=== PATIENT | male | born 1990 | race Caucasian/White ===

== ENCOUNTER 2019-01-28 16:58 | Inpatient (IN) | payer OTHER ==
[~2019-01-28] VITALS: Ht 172.7 cm; Wt 75.9 kg
[2019-01-28] MEDS ORDERED: NS 1,000 ML IV ONE (18:00)
[2019-01-28 18:05] LABS: BASO % 0.3 % (0.0-1.0); EOS # 0.1 10^3/uL (0.0-0.50); EOS % 1.6 % (0.0-3.0); HEMOGLOBIN 13.8 g/dl (13.5-17.5); LYMPH # 1.4 10^3/uL (1.5-6.5); LYMPH % 21.9 % (24.0-44.0); MEAN CORPUSCULAR HEMOGLOBIN 30.6 pg (27.0-33.0); MEAN CORPUSCULAR HGB CONC 33.7 g/dl (32.0-36.5); MEAN CORPUSCULAR VOLUME 90.9 fl (80.0-96.0); MONO # 0.3 10^3/uL (0.0-0.8); MONO % 4.2 % (0.0-5.0); NEUTROPHILS # 4.5 10^3/uL (1.8-7.7); NEUTROPHILS % 71.7 % (36.0-66.0); PLATELET COUNT, AUTOMATED 180 10^3/uL (150-450); RED BLOOD COUNT 4.51 10^6/uL (4.30-6.10); WHITE BLOOD COUNT 6.2 10^3/uL (4.0-10.0)
[2019-01-28 18:33] LABS: CALCIUM LEVEL 9.2 MG/DL (8.5-10.1); CREATININE FOR GFR 2.66 MG/DL (0.70-1.30); GLOMERULAR FILTRATION RATE 30.6 (>60); POTASSIUM SERUM 4.4 MEQ/L (3.5-5.1)
[2019-01-28 18:46] LABS: AMPHETAMINES LEVEL URINE NEGATIVE (NEGATIVE); BARBITURATES URINE NEGATIVE (NEGATIVE); BENZODIAZEPINES URINE NEGATIVE (NEGATIVE); CANNABINOIDS URINE NEGATIVE (NEGATIVE); COCAINE METABOLITE URINE NEGATIVE (NEGATIVE); METHADONE URINE NEGATIVE (NEGATIVE); OPIATES URINE NEGATIVE (NEGATIVE); PHENCYCLIDINE URINE NEGATIVE (NEGATIVE)
--- NOTE | 2019-01-28 18:57 | REPVR ---
EXAM: CT Abdomen and Pelvis Without Contrast EXAM DATE/TIME: 01/28/2019 5:55 PM CLINICAL HISTORY: 28 years old, male; Abdominal pain; Flank; Right; Additional info: Right flank pain TECHNIQUE: Imaging protocol: Axial computed tomography images of the abdomen and pelvis without contrast. Coronal and sagittal reformatted images were created and reviewed. Radiation optimization: All CT scans at this facility use at least one of these dose optimization techniques: automated exposure control; mA and/or kV adjustment per patient size (includes targeted exams where dose is matched to clinical indication); or iterative reconstruction. COMPARISON: No relevant prior studies available. FINDINGS: Limitations: Lack of intravenous contrast material limits evaluation of the vascular and visceral structures. Liver: Normal. No mass. Gallbladder and bile ducts: Normal. No calcified stones. No ductal dilation. Pancreas: Normal. No ductal dilation. Spleen: Normal. No splenomegaly. Adrenals: Normal. No mass. Kidneys and ureters: Right renal cortical scarring. Absence of the left kidney. Mild to moderate distention of the distal right ureter. No obstructing calculus is identified. No hydronephrosis. Stomach and bowel: Normal. No obstruction. No mucosal thickening. Appendix: No evidence of appendicitis. Intraperitoneal space: Normal. No free air. No significant fluid collection. Vasculature: Normal. No abdominal aortic aneurysm. Lymph nodes: Normal. No enlarged lymph nodes. Bladder: Unremarkable as visualized. Reproductive: Unremarkable as visualized. Bones/joints: No acute fracture. No dislocation. Soft tissues: Unremarkable. IMPRESSION: 1. Nonspecific mild to moderate distention of the distal right ureter. No obstructing calculus is identified. No hydronephrosis. 2. Absent left kidney. 3. Right renal cortical scarring. Electronically signed by: Pura Garcia On 01/28/2019 18:57:29 PM
[2019-01-28] MEDS ORDERED: ACETAMINOPHEN 500 MG TAB PO PRN (20:30)
[2019-01-28] MEDS: D5W/0.9% SODIUM CHLORIDE 1,000 ML IV SCH (20:51)
--- NOTE | 2019-01-28 21:42 | HPEPDOC ---
General Date of Admission Jan 28, 2019 at 20:22 Date of Service: Jan 28, 2019 Chief Complaint The patient is a 28-year-old male admitted with a reason for visit of Ckd, Stage Iv. Source: Patient, Old records History of Present Illness 28 year old male recently moved up from [place] about 3 months ago to stay with uncle at [place] with PMH of CKD stage 4, Obstructive uropathy had nephrostomy tube on the right from April 2018 to August 2018 was put in [place] and it fell off during showering, left nephrectomy at age 3, unemployed, no PMD, uncle has no transportation as his car broke down no food in the house so has not been eating much or past 3 days so feeling very weak and dizzy today and called the EMS and he was brought to our ED for evaluation. Patient was seen at [facility] ED about a week ago for right flank pain and was diagnosed with a UTI and was prescribed antibiotics which he could not strip picker as he had no transportation. Today he continues to complain of right flank pain about 4/10 in intensity, dull aching in type with no radiation. Labs in the ED showed a creatinine of 2.6, His UA was clean. His creatinine patient reports was 2.7 and 3.7 in November and December and he was referred to renal here but has not been able to see them as he has no transportation. He was admitted for social issues Allergies Coded Allergies: No Known Drug Allergies (Verified Allergy, Unknown, 01/28/19) NSAIDS (Non-Steroidal Anti-Inflamma (Verified Adverse Reaction, Unknown, 01/28/19) Kidney failure Past Medical History Medical History CKD stage 4, Obstructive uropathy had nephrostomy tube on the right from April 2018 to August 2018 was put in [place] and it fell off during sh owering, left nephrectomy at age 3, Family History Significant Family History: Heart disease (fatehr, uncle), Hypertension (father, uncle), Renal disease (mother) Social History * Smoker: current smoker Alcohol: Denies Drugs: denies A-FIB/CHADSVASC A-FIB History Current/History of A-Fib/PAF?: No Review of Systems Constitutional: Reports: Weakness, Fatigue; Denies: Chills, Fever, Night Sweats Eyes: Denies: Pain, Vision change ENT: Denies: Head Aches, Ear Pain, Dysphagia Skin: Denies: Rash, Lesions, Breakdown Pulmonary: Denies: Dyspnea, Cough Cardiovascular: Denies: Chest Pain, Palpitations, Orthopnea, Paroxysmal Noc. Dyspnea, Lt Headedness Gastrointestinal: Reports: Abdominal Pain; Denies: Nausea, Vomiting, Diarrhea Genitourinary: Reports: Other Symptoms (dark colored urine); Denies: Dysuria, Frequency, Incontinence, Retention Hematologic: Denies: Bruising, Bleeding Excessively Musculoskeletal: Denies: Neck Pain, Back Pain, Joint Pain, Muscle Pain, Spasms Physical Examination General Exam: Positive: Alert, Cooperative, No Acute Distress Eye Exam: Positive: PERRLA, Conjunctiva & lids normal, EOMI; Negative: Sclera icteric ENT Exam: Positive: Atraumatic, Mucous membr. moist/pink, Pharynx Normal Neck Exam: Positive: Supple; Negative: JVD, thyromegaly Chest Exam: Positive: Clear to auscultation, Normal air movement Heart Exam: Positive: Rate Normal, Regular Rhythm, Normal S1, Normal S2; Negative: Murmurs, Rubs Abdomen Exam: Positive: Normal bowel sounds, Soft, Tenderness (right flank on deep palpation), Other (No CVA tenderness); Negative: Hepatospenomegaly Extremity Exam: Positive: Normal pulses; Negative: Clubbing, Cyanosis, Edema Skin Exam: Positive: Nl turgor and temperature; Negative: Breakdown, Lesion Psych Exam: Positive: Memory Intact, Oriented x 3 Vital Signs Vital Signs Date Time Temp Pulse Resp B/P (MAP) Pulse Ox O2 Delivery O2 Flow Rate FiO2 01/28/19 17:03 98.1 76 16 130/63 100 Room Air Laboratory Data Labs 24H Laboratory Tests 2 01/28/19 17:39: Immature Granulocyte % (Auto) 0.3, White Blood Count 6.2, Red Blood Count 4.51, Hemoglobin 13.8, Hematocrit 41.0L, Mean Corpuscular Volume 90.9, Mean Corpuscular Hemoglobin 30.6, Mean Corpuscular Hemoglobin Concent 33.7, Red Cell Distribution Width 13.0, Platelet Count 180, Neutrophils (%) (Auto) 71.7H, Lymphocytes (%) (Auto) 21.9L, Monocytes (%) (Auto) 4.2, Eosinophils (%) (Auto) 1.6, Basophils (%) (Auto) 0.3, Neutrophils # (Auto) 4.5, Lymphocytes # (Auto) 1.4L, Monocytes # (Auto) 0.3, Eosinophils # (Auto) 0.1, Basophils # (Auto) 0.0, Nucleated Red Blood Cells % (auto) 0.0, Anion Gap 16, Glomerular Filtration Rate 30.6L, Blood Urea Nitrogen 35H, Creatinine 2.66H, Sodium Level 141, Potassium Level 4.4, Chloride Level 106, Carbon Dioxide Level 19L, Calcium Level 9.2 01/28/19 17:43: Urine Color YELLOW, Urine Appearance CLEAR, Urine pH 5.0, Urine Specific [place] 1.011, Urine Protein 2+H, Urine Glucose (UA) NEGATIVE, Urine Ketones 1+H, Urine Blood 1+H, Urine Nitrite NEGATIVE, Urine Bilirubin NEGATIVE, Urine Urobilinogen 0.2, Urine Leukocyte Esterase NEGATIVE, Urine WBC (Auto) 1, Urine RBC (Auto) 2, Urine Hyaline Casts (Auto) 0, Urine Bacteria (Auto) NEGATIVE, Urine Squamous Epithelial Cells 0, Urine Sperm (Auto) 01/28/19 17:44: Urine Amphetamines Screen NEGATIVE, Urine Benzodiazepines Screen NEGATIVE, Urine Opiates Screen NEGATIVE, Urine Methadone Screen NEGATIVE, Urine Barbiturates Screen NEGATIVE, Urine Phencyclidine Screen NEGATIVE, Urine Cocaine Metabolite Screen NEGATIVE, Urine Cannabinoids Screen NEGATIVE 01/28/19 19:46: Ethyl Alcohol Level < 0.003 CBC/BMP Laboratory Tests 01/28/19 17:39 Red Blood Count 4.51, Mean Corpuscular Volume 90.9, Mean Corpuscular Hemoglobin 30.6, Mean Corpuscular Hemoglobin Concent 33.7, Red Cell Distribution Width 13.0, Neutrophils (%) (Auto) 71.7 H, Lymphocytes (%) (Auto) 21.9 L, Monocytes (%) (Auto) 4.2, Eosinophils (%) (Auto) 1.6, Basophils (%) (Auto) 0.3, Neutrophils # (Auto) 4.5, Lymphocytes # (Auto) 1.4 L, Monocytes # (Auto) 0.3, Eosinophils # (Auto) 0.1, Basophils # (Auto) 0.0, Calcium Level 9.2 Assessment/Plan 28 year old male recently moved up from [place] about 3 months ago to stay with uncle at [place] with PMH of CKD stage 4, Obstructive uropathy had nephrostomy tube on the right from April 2018 to August 2018 was put in [place] and it fell off during showering, left nephrectomy at age 3, unemployed, no PMD, uncle has no transportation as his car broke down no food in the house so has not been eating much or past 3 days so feeling very weak and dizzy today and called the EMS and he was brought to our ED for evaluation. Patient was seen at [facility] ED about a week ago for right flank pain and was diagnosed with a UTI and was prescribed antibiotics which he could not strip picker as he had no transportation. Today he continues to complain of right flank pain about 4/10 in intensity, dull aching in type with no radiation. Labs in the ED showed a creatinine of 2.6, His UA was clean. His creatinine patient reports was 2.7 and 3.7 in November and December and he was referred to renal here but has not been able to see them as he has no transportation. He was admitted for social issues. CKD stage 3 to 4 solitary kidney creatinine probably at baseline however will give some IVF. CT abdomen showed right ureteric dilatation will consult urology Hypoglycemia will give regular food and dextrose. tylenol for pain Social issues consult PFS. Plan / VTE VTE Prophylaxis Ordered?: Yes MARCO JUNIOR MD Jan 28, 2019 21:41
[2019-01-28] MEDS ORDERED: ADVI100T PO (22:10)
[2019-01-28 22:42] VITALS: BP 112/74
[2019-01-29 06:00] VITALS: BP 107/67
[2019-01-29] MEDS: D5W/0.9% SODIUM CHLORIDE 1,000 ML IV SCH ×3 (06:39→20:09)
[2019-01-29 06:49] LABS: BASO % 0.4 % (0.0-1.0); EOS # 0.2 10^3/uL (0.0-0.50); EOS % 4.6 % (0.0-3.0); LYMPH % 39.1 % (24.0-44.0); MEAN CORPUSCULAR HGB CONC 34.3 g/dl (32.0-36.5); MEAN CORPUSCULAR VOLUME 87.5 fl (80.0-96.0); MONO # 0.5 10^3/uL (0.0-0.8); MONO % 9.6 % (0.0-5.0); NEUTROPHILS # 2.4 10^3/uL (1.8-7.7); NEUTROPHILS % 46.1 % (36.0-66.0); PLATELET COUNT, AUTOMATED 192 10^3/uL (150-450); WHITE BLOOD COUNT 5.2 10^3/uL (4.0-10.0)
[2019-01-29 07:05] LABS: CALCIUM LEVEL 7.9 MG/DL (8.5-10.1); CREATININE FOR GFR 2.42 MG/DL (0.70-1.30); GLOMERULAR FILTRATION RATE 34.2 (>60); POTASSIUM SERUM 3.9 MEQ/L (3.5-5.1)
--- NOTE | 2019-01-29 09:16 | IPNPDOC ---
Date Seen The patient was seen on 01/29/19. Progress Note SUBJECTIVE: Pt denies any fever, chills, nausea, vomiting, abdominal pain, sob. npo on ivfluids. "I'm hungry." Urologist consulted. Physical Examination VITALS: PLS SEE BELOW General Exam: Positive: Alert, Cooperative, No Acute Distress Eye Exam: Positive: PERRLA, Conjunctiva & lids normal, EOMI; Negative: Sclera icteric ENT Exam: Positive: Atraumatic, Mucous membr. moist/pink, Pharynx Normal Neck Exam: Positive: Supple; Negative: JVD, thyromegaly Chest Exam: Positive: Clear to auscultation, Normal air movement Heart Exam: Positive: Rate Normal, Regular Rhythm, Normal S1, Normal S2; Negative: Murmurs, Rubs Abdomen Exam: Positive: Normal bowel sounds, Soft, Tenderness (right flank on deep palpation), Other (No CVA tenderness); Negative: Hepatospenomegaly Extremity Exam: Positive: Normal pulses; Negative: Clubbing, Cyanosis, Edema Skin Exam: Positive: Nl turgor and temperature; LABORATORY DATA, IMAGING STUDIES, MICROBIOLOGY: PLS SEE BELOW Assessment/Plan 28 year old male recently moved up from [place] about 3 months ago to stay with uncle at [place] with PMH of CKD stage 4, Obstructive uropathy had nephrostomy tube on the right from April 2018 to August 2018 was put in [place] and it fell off during showering, left nephrectomy at age 3, unemployed, no PMD, uncle has no transportation as his car broke down no food in the house so has not been eating much or past 3 days so feeling very weak and dizzy today and called the EMS and he was brought to our ED for evaluation. 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 Today he continues to complain of right flank pain about 4/10 in intensity, dull aching in type with no radiation. Labs in the ED showed a creatinine of 2.6, His UA was clean. His creatinine patient reports was 2.7 and 3.7 in November and December and he was referred to renal here but has not been able to see them as he has no transportation. He was admitted for social issues. CKD stage 3 to 4 solitary kidney creatinine probably at baseline on iv fluids npo CT abdomen showed right ureteric dilatation consulted urology Hypoglycemia npo on ivfluids hypoglycemic protocol Obstructive uropathy -had nephrostomy tube on the right -from April 2018 to August 2018 -was put in [place] - it fell off during showering, left nephrectomy at age 3, solitary functioning kidney on ivfluids renally dosing medications avoiding nephrotoxins no NSAIDS unemployed, moved from [place] living his uncle in [place] pfs consulted for assistance Plan / VTE VTE Prophylaxis Ordered?: Yes VS, I&O, 24H, Fishbone Vital Signs/I&O Vital Signs Date Time Temp Pulse Resp B/P (MAP) Pulse Ox O2 Delivery O2 Flow Rate FiO2 01/29/19 06:00 98.2 55 18 107/67 (80) 95 01/28/19 22:35 Room Air I&O- Last 24 Hours up to 6 AM 01/29/19 06:00 Intake Total 3080 ml Output Total 600 ml Balance 2480 ml Laboratory Data 24H LABS Laboratory Tests 2 01/28/19 17:39: Immature Granulocyte % (Auto) 0.3, White Blood Count 6.2, Red Blood Count 4.51, Hemoglobin 13.8, Hematocrit 41.0L, Mean Corpuscular Volume 90.9, Mean Corpuscular Hemoglobin 30.6, Mean Corpuscular Hemoglobin Concent 33.7, Red Cell Distribution Width 13.0, Platelet Count 180, Neutrophils (%) (Auto) 71.7H, Lymphocytes (%) (Auto) 21.9L, Monocytes (%) (Auto) 4.2, Eosinophils (%) (Auto) 1.6, Basophils (%) (Auto) 0.3, Neutrophils # (Auto) 4.5, Lymphocytes # (Auto) 1.4L, Monocytes # (Auto) 0.3, Eosinophils # (Auto) 0.1, Basophils # (Auto) 0.0, Nucleated Red Blood Cells % (auto) 0.0, Anion Gap 16, Glomerular Filtration Rate 30.6L, Blood Urea Nitrogen 35H, Creatinine 2.66H, Sodium Level 141, Potassium Level 4.4, Chloride Level 106, Carbon Dioxide Level 19L, Calcium Level 9.2 01/28/19 17:43: Urine Color YELLOW, Urine Appearance CLEAR, Urine pH 5.0, Urine Specific [place] 1.011, Urine Protein 2+H, Urine Glucose (UA) NEGATIVE, Urine Ketones 1+H, Urine Blood 1+H, Urine Nitrite NEGATIVE, Urine Bilirubin NEGATIVE, Urine Urobilinogen 0.2, Urine Leukocyte Esterase NEGATIVE, Urine WBC (Auto) 1, Urine RBC (Auto) 2, Urine Hyaline Casts (Auto) 0, Urine Bacteria (Auto) NEGATIVE, Urine Squamous Epithelial Cells 0, Urine Sperm (Auto) 01/28/19 17:44: Urine Amphetamines Screen NEGATIVE, Urine Benzodiazepines Screen NEGATIVE, Urine Opiates Screen NEGATIVE, Urine Methadone Screen NEGATIVE, Urine Barbiturates Screen NEGATIVE, Urine Phencyclidine Screen NEGATIVE, Urine Cocaine Metabolite Screen NEGATIVE, Urine Cannabinoids Screen NEGATIVE 01/28/19 19:46: Ethyl Alcohol Level < 0.003 01/28/19 22:28: Bedside Glucose (Misc Panel) 260H 01/29/19 05:27: Immature Granulocyte % (Auto) 0.2, White Blood Count 5.2, Red Blood Count 4.00L, Hemoglobin 12.0L, Hematocrit 35.0L, Mean Corpuscular Volume 87.5, Mean Corpuscular Hemoglobin 30.0, Mean Corpuscular Hemoglobin Concent 34.3, Red Cell Distribution Width 12.9, Platelet Count 192, Neutrophils (%) (Auto) 46.1, Lymphocytes (%) (Auto) 39.1, Monocytes (%) (Auto) 9.6H, Eosinophils (%) (Auto) 4.6H, Basophils (%) (Auto) 0.4, Neutrophils # (Auto) 2.4, Lymphocytes # (Auto) 2.0, Monocytes # (Auto) 0.5, Eosinophils # (Auto) 0.2, Basophils # (Auto) 0.0, Nucleated Red Blood Cells % (auto) 0.0, Anion Gap 7L, Glomerular Filtration Rate 34.2L, Blood Urea Nitrogen 37H, Creatinine 2.42H, Sodium Level 142, Potassium Level 3.9, Chloride Level 113H, Carbon Dioxide Level 22, Calcium Level 7.9L CBC/BMP Laboratory Tests 01/28/19 17:39 Red Blood Count 4.51, Mean Corpuscular Volume 90.9, Mean Corpuscular Hemoglobin 30.6, Mean Corpuscular Hemoglobin Concent 33.7, Red Cell Distribution Width 13.0, Neutrophils (%) (Auto) 71.7 H, Lymphocytes (%) (Auto) 21.9 L, Monocytes (%) (Auto) 4.2, Eosinophils (%) (Auto) 1.6, Basophils (%) (Auto) 0.3, Neutrophils # (Auto) 4.5, Lymphocytes # (Auto) 1.4 L, Monocytes # (Auto) 0.3, Eosinophils # (Auto) 0.1, Basophils # (Auto) 0.0, Calcium Level 9.2 01/29/19 05:27 Red Blood Count 4.00 L, Mean Corpuscular Volume 87.5, Mean Corpuscular Hemoglobin 30.0, Mean Corpuscular Hemoglobin Concent 34.3, Red Cell Distribution Width 12.9, Neutrophils (%) (Auto) 46.1, Lymphocytes (%) (Auto) 39.1, Monocytes (%) (Auto) 9.6 H, Eosinophils (%) (Auto) 4.6 H, Basophils (%) (Auto) 0.4, Neutro phils # (Auto) 2.4, Lymphocytes # (Auto) 2.0, Monocytes # (Auto) 0.5, Eosinophils # (Auto) 0.2, Basophils # (Auto) 0.0, Calcium Level 7.9 L KALYAN VASQUEZ MD Jan 29, 2019 09:16
[2019-01-29 14:00] VITALS: BP 130/75
[2019-01-29 22:00] VITALS: BP 109/63
[2019-01-30] VITALS (7 sets, daily range): BP systolic 116–156; BP diastolic 69–108
[2019-01-30 06:02] LABS: BASO % 0.6 % (0.0-1.0); EOS # 0.2 10^3/uL (0.0-0.50); EOS % 4.3 % (0.0-3.0); HEMOGLOBIN 11.1 g/dl (13.5-17.5); LYMPH # 1.9 10^3/uL (1.5-6.5); LYMPH % 36.4 % (24.0-44.0); MEAN CORPUSCULAR HEMOGLOBIN 29.9 pg (27.0-33.0); MEAN CORPUSCULAR HGB CONC 33.6 g/dl (32.0-36.5); MEAN CORPUSCULAR VOLUME 88.9 fl (80.0-96.0); MONO # 0.5 10^3/uL (0.0-0.8); MONO % 8.8 % (0.0-5.0); NEUTROPHILS # 2.7 10^3/uL (1.8-7.7); NEUTROPHILS % 49.7 % (36.0-66.0); PLATELET COUNT, AUTOMATED 163 10^3/uL (150-450); RED BLOOD COUNT 3.71 10^6/uL (4.30-6.10); WHITE BLOOD COUNT 5.3 10^3/uL (4.0-10.0)
[2019-01-30 06:19] LABS: CALCIUM LEVEL 8.2 MG/DL (8.5-10.1); CREATININE FOR GFR 2.3 MG/DL (0.70-1.30); GLOMERULAR FILTRATION RATE 36.2 (>60); POTASSIUM SERUM 3.9 MEQ/L (3.5-5.1)
[2019-01-30] MEDS: D5W/0.9% SODIUM CHLORIDE 1,000 ML IV SCH (06:34)
[2019-01-30] MEDS ORDERED: PROPOFOL 200 MG/20 ML VIAL As Ordered ONE (07:38)
[2019-01-30] MEDS ORDERED: fentaNYL 100 MCG/2 ML INJECTION (J3010) As Ordered ONE ×2 (07:38→10:20)
[2019-01-30] MEDS ORDERED: MIDAZOLAM INJ 2 MG/2 ML VIAL (J2250) As Ordered ONE (07:38)
[2019-01-30] MEDS ORDERED: LIDOCAINE 2% INJ 100 MG/5 ML SDV (FOR ANES.) As Ordered ONE (07:38)
[2019-01-30] MEDS ORDERED: CONRAY-60 60% 50ML VIAL (Q9961) As Ordered ONE (08:23)
[2019-01-30] MEDS ORDERED: cefTRIAXone SOD 1 GM VIAL (J0696) As Ordered ONE (08:41)
[2019-01-30] MEDS ORDERED: dexameTHASONE 4 MG/ML 1ML VIAL (J1100) As Ordered ONE (08:59)
[2019-01-30] MEDS ORDERED: ONDANSETRON 4MG/2ML VIAL (J2405) As Ordered ONE ×2 (08:59→10:20)
[2019-01-30] MEDS ORDERED: METHYLENE BLUE 0.5% (5MG/ML) 10 ML AMP (PROVAYBLUE)(Q9968 PER 1MG) As Ordered ONE (09:20)
[2019-01-30] MEDS ORDERED: MEPERIDINE INJ 25 MG/ML VIAL (J2175) IV PRN (10:15)
[2019-01-30] MEDS ORDERED: LR 1,000 ML IV SCH (10:15)
[2019-01-30] MEDS ORDERED: ONDANSETRON 4MG/2ML VIAL (J2405) IV PRN (10:15)
[2019-01-30] MEDS ORDERED: PERCOCET 5MG/325MG TAB PO PRN (10:15)
[2019-01-30] MEDS ORDERED: METOCLOPRAMIDE INJ 10MG/2ML VIAL (J2765) IV PRN (10:15)
[2019-01-30] MEDS: fentaNYL 100 MCG/2 ML INJECTION (J3010) IV PRN ×2 (10:20→11:09)
--- NOTE | 2019-01-30 12:14 | RO ---
DATE OF PROCEDURE: 01/30/2019 PREOPERATIVE DIAGNOSIS: Right renal obstruction. POSTOPERATIVE DIAGNOSIS: Right renal obstruction. OPERATIVE PROCEDURE PERFORMED: Cystoscopy and attempted right retrograde pyelogram. SURGEON: Chan Da Silva MD BLOW MOLD TECHNICIAN: ANESTHESIA: General INDICATIONS: Mr. Arpan Gregg is a 28-year-old gentleman with a complicated genitourinary history including prior left nephrectomy and history of right distal ureteral scarring who came to the emergency room with abdominal pain and some microhematuria. He was found by CT scan done without contrast due to renal insufficiency to have dilation of his distal right ureter. He continued with mild intermittent right sided abdominal pain and is therefore being scheduled for right retrograde and possible stent. PROCEDURE IN DETAIL: The patient was brought into the operating room, placed in supine position. After administration of general anesthesia, he was placed in dorsal lithotomy position and prepped and draped in the usual sterile fashion. Cystourethroscopy was performed using a 22 Ethiopian cystoscope. The anterior and posterior urethra were noted to be normal. The prostate was normal in size, shape and configuration. The bladder was entered without difficulty. Upon entrance into the bladder, there was no obvious left ureteral orifice noted. The intertrigonal ridge was seen, however on the right side of that ridge, there was what appeared to be no obvious orifice and an area just superior and medial to this that looked like a backward placed orifice. Multiple attempts at cannulating that visualized orifice with both a wire or a Pollack catheter were unsuccessful. No contrast material was seen to enter that space. No obvious orifice or efflux of urine could be seen at all during the procedure. The patient was given an intravenous bolus of methylene blue and after 30 minutes there was still no visualized blue urine. Multiple attempts at visualization of an orifice were unsuccessful. Therefore, the procedure was aborted. The bladder was drained in its entirety and the patient returned to a supine position. Anesthesia was reversed. He was transferred to a bed and taken to the postanesthesia care unit (PACU) in good condition. Of note, the needle and instrument counts were correct at the conclusion of the case. ISAÍAS
--- NOTE | 2019-01-30 16:14 | IPNPDOC ---
Text Note Date of Service The patient was seen on 01/30/19. NOTE SUBJECTIVE: Pt denies any fever, chills, nausea, vomiting, abdominal pain, sob. Patient seen and examined after OR procedure Physical Examination VITALS: PLS SEE BELOW General Exam: Positive: Alert, Cooperative, No Acute Distress Eye Exam: Positive: PERRLA, Conjunctiva & lids normal, EOMI; Negative: Sclera icteric ENT Exam: Positive: Atraumatic, Mucous membr. moist/pink, Pharynx Normal Neck Exam: Positive: Supple; Negative: JVD, thyromegaly Chest Exam: Positive: Clear to auscultation, Normal air movement Heart Exam: Positive: Rate Normal, Regular Rhythm, Normal S1, Normal S2; Negative: Murmurs, Rubs Abdomen Exam: Positive: Normal bowel sounds, Soft, Tenderness (right flank on deep palpation), Other (No CVA tenderness); Negative: Hepatospenomegaly Extremity Exam: Positive: Normal pulses; Negative: Clubbing, Cyanosis, Edema Skin Exam: Positive: Nl turgor and temperature; LABORATORY DATA, IMAGING STUDIES, MICROBIOLOGY: PLS SEE BELOW Assessment/Plan 28 year old male recently moved up from [place] about 3 months ago to stay with uncle at [place] with PMH of CKD stage 4, Obstructive uropathy had nephrostomy tube on the right from April 2018 to August 2018 was put in [place] and it fell off during showering, left nephrectomy at age 3, unemployed, no PMD, uncle has no transportation as his car broke down no food in the house so has not been eating much or past 3 days so feeling very weak and dizzy today and called the EMS and he was brought to our ED for evaluation. 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 Today he continues to complain of right flank pain about 4/10 in intensity, dull aching in type with no radiation. Labs in the ED showed a creatinine of 2.6, His UA was clean. His creatinine patient reports was 2.7 and 3.7 in November and December and he was referred to renal here but has not been able to see them as he has no transportation. He was admitted for social issues. #CKD stage 3 to 4 -solitary kidney -creatinine at baseline -on iv fluids -CT abdomen showed right ureteric dilatation -Patient was brought to the OR for : Cystoscopy and attempted right retrograde pyelogram. -Melanieevrito, Multiple attempts at visualization of an orifice were unsuccessful. Therefore, the procedure was aborted. -Awaiting further urology recommendations. #Hypoglycemia -resolved -resume PO diet l Obstructive uropathy -had nephrostomy tube on the right -from April 2018 to August 2018 -was put in [place] - it fell off during showering, left nephrectomy at age 3, solitary functioning kidney on ivfluids renally dosing medications avoiding nephrotoxins no NSAIDS unemployed, moved from [place] living his uncle in [place] pfs consulted for assistance Plan / VTE VTE Prophylaxis Ordered?: Yes VS,Jonnybonmonica, I+O VS, Lamar, I+O Laboratory Tests 01/30/19 05:36 Red Blood Count 3.71 L, Mean Corpuscular Volume 88.9, Mean Corpuscular Hemoglobin 29.9, Mean Corpuscular Hemoglobin Concent 33.6, Red Cell Distribution Width 13.3, Neutrophils (%) (Auto) 49.7, Lymphocytes (%) (Auto) 36.4, Monocytes (%) (Auto) 8.8 H, Eosinophils (%) (Auto) 4.3 H, Basophils (%) (Auto) 0.6, Neutrophils # (Auto) 2.7, Lymphocytes # (Auto) 1.9, Monocytes # (Auto) 0.5, Eosinophils # (Auto) 0.2, Basophils # (Auto) 0.0, Calcium Level 8.2 L Vital Signs Date Time Temp Pulse Resp B/P (MAP) Pulse Ox O2 Delivery O2 Flow Rate FiO2 01/30/19 12:48 84 100 01/30/19 12:26 127/81 (96) 01/30/19 11:23 94.2 01/30/19 11:17 18 01/28/19 22:35 Room Air I&O- Last 24 Hours up to 6 AM 01/30/19 06:00 Intake Total 2655 ml Balance 2655 ml YOANA WALLACE MD Jan 30, 2019 16:14
[2019-01-30 21:19] LABS: CK-MB VALUE MASS 1.6 NG/ML (<3.6); CPK CREATINE PHOSPHOKINASE 245 U/L (39-308); MB/CK RELATIVE INDEX 0.65 (< OR =4); TROPONIN I < 0.02 NG/ML (< 0.10)
[2019-01-30] MEDS: GI COCKTAIL 50ML BTL(HYOSCYAMINE/MAALOX/LIDOCAINE VISCOUS)(1:3:1) PO PRN (21:44)
--- NOTE | 2019-01-31 00:49 | REP ---
Clinical: acute chest pain . Comparison: 05/23/2009 . Findings: The mediastinum and cardiac silhouette are stable and within normal limits for portable technique. The lung rahman are clear without acute consolidation, effusion, or pneumothorax. Skeletal structures are intact. Impression: No acute cardiopulmonary process appreciated. Electronically Signed by Froilan Hare MD 01/31/2019 12:41 A
[2019-01-31 02:33] LABS: CK-MB VALUE MASS 1.8 NG/ML (<3.6); CPK CREATINE PHOSPHOKINASE 215 U/L (39-308); MB/CK RELATIVE INDEX 0.84 (< OR =4); TROPONIN I < 0.02 NG/ML (< 0.10)
[2019-01-31 06:00] VITALS: BP 129/84
[2019-01-31 06:01] LABS: BASO % 0.2 % (0.0-1.0); EOS # 0.1 10^3/uL (0.0-0.50); EOS % 1.5 % (0.0-3.0); HEMATOCRIT 33.3 % (42.0-52.0); HEMOGLOBIN 10.9 g/dl (13.5-17.5); LYMPH # 1.8 10^3/uL (1.5-6.5); LYMPH % 30.3 % (24.0-44.0); MEAN CORPUSCULAR HEMOGLOBIN 30.4 pg (27.0-33.0); MEAN CORPUSCULAR HGB CONC 32.7 g/dl (32.0-36.5); MONO # 0.5 10^3/uL (0.0-0.8); MONO % 8.7 % (0.0-5.0); NEUTROPHILS # 3.5 10^3/uL (1.8-7.7); PLATELET COUNT, AUTOMATED 150 10^3/uL (150-450); RED BLOOD COUNT 3.58 10^6/uL (4.30-6.10)
[2019-01-31 06:22] LABS: CALCIUM LEVEL 8.3 MG/DL (8.5-10.1); CREATININE FOR GFR 2.36 MG/DL (0.70-1.30); GLOMERULAR FILTRATION RATE 35.2 (>60); POTASSIUM SERUM 4.5 MEQ/L (3.5-5.1)
[2019-01-31 10:00] VITALS: BP 124/93
--- NOTE | 2019-01-31 12:24 | IPNPDOC ---
Text Note Date of Service The patient was seen on 01/31/19. NOTE SUBJECTIVE: Pt denies any fever, chills, nausea, vomiting, abdominal pain, sob. Patient seen and examined at bedside. Patient was made aware of field urological attempt. I discussed with him the need for nephrostomy tube placement however patient showed hesitation given his financial status and lack of insurance. All questions and concerns answered. I told him case management will be notified and can answer his financial concerns. Physical Examination VITALS: PLS SEE BELOW General Exam: Positive: Alert, Cooperative, No Acute Distress Eye Exam: Positive: PERRLA, Conjunctiva & lids normal, EOMI; Negative: Sclera icteric ENT Exam: Positive: Atraumatic, Mucous membr. moist/pink, Pharynx Normal Neck Exam: Positive: Supple; Negative: JVD, thyromegaly Chest Exam: Positive: Clear to auscultation, Normal air movement Heart Exam: Positive: Rate Normal, Regular Rhythm, Normal S1, Normal S2; Negative: Murmurs, Rubs Abdomen Exam: Positive: Normal bowel sounds, Soft, Tenderness (right flank on deep palpation), Other (No CVA tenderness); Negative: Hepatospenomegaly Extremity Exam: Positive: Normal pulses; Negative: Clubbing, Cyanosis, Edema Skin Exam: Positive: Nl turgor and temperature; LABORATORY DATA, IMAGING STUDIES, MICROBIOLOGY: PLS SEE BELOW Assessment/Plan 28 year old male recently moved up from [place] about 3 months ago to stay with uncle at [place] with PMH of CKD stage 4, Obstructive uropathy had nephrostomy tube on the right from April 2018 to August 2018 was put in [place] and it fell off during showering, left nephrectomy at age 3, unemployed, no PMD, uncle has no transportation as his car broke down no food in the house so has not been eating much or past 3 days so feeling very weak and dizzy today and called the EMS and he was brought to our ED for evaluation. 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 Today he continues to complain of right flank pain about 4/10 in intensity, dull aching in type with no radiation. Labs in the ED showed a creatinine of 2.6, His UA was clean. His creatinine patient reports was 2.7 and 3.7 in November and December and he was referred to renal here but has not been able to see them as he has no transportation. He was admitted for social issues. #CKD stage 3 to 4 -solitary kidney -creatinine at baseline -on iv fluids -CT abdomen showed right ureteric dilatation -Patient was brought to the OR for : Cystoscopy and attempted right retrograde pyelogram. -Howevwer, Multiple attempts at visualization of an orifice were unsuccessful. Therefore, the procedure was aborted. -Case discussed with urology today who recommended IR consult for CT-guided nephrostomy tube -IR was consulted and I spoke with interventional radiologist who will take the patient to the lab tonjosee #Hypoglycemia -resolved -resume PO diet l Obstructive uropathy -had nephrostomy tube on the right -from April 2018 to August 2018 -was put in [place] - it fell off during showering, left nephrectomy at age 3, solitary functioning kidney on ivfluids renally dosing medications avoiding nephrotoxins no NSAIDS unemployed, moved from [place] living his uncle in [place] pfs consulted for assistance DVT PPx- resume SQh after procedure tonjosee VS,Jossee, I+O VS, Fishbone, I+O Laboratory Tests 01/31/19 05:46 Red Blood Count 3.58 L, Mean Corpuscular Volume 93.0, Mean Corpuscular Hemoglobin 30.4, Mean Corpuscular Hemoglobin Concent 32.7, Red Cell Distribution Width 13.6, Neutrophils (%) (Auto) 59.0, Lymphocytes (%) (Auto) 30.3, Monocytes (%) (Auto) 8.7 H, Eosinophils (%) (Auto) 1.5, Basophils (%) (Auto) 0.2, Neutrophils # (Auto) 3.5, Lymphocytes # (Auto) 1.8, Monocytes # (Auto) 0.5, Eosinophils # (Auto) 0.1, Basophils # (Auto) 0.0, Calcium Level 8.3 L Vital Signs Date Time Temp Pulse Resp B/P (MAP) Pulse Ox O2 Delivery O2 Flow Rate FiO2 01/31/19 10:00 98.0 76 14 124/93 (103) 100 01/28/19 22:35 Room Air I&O- Last 24 Hours up to 6 AM 01/31/19 06:00 Intake Total 2100 ml Output Total 1252 ml Balance 848 ml YOANA WALLACE MD Jan 31, 2019 12:24
[2019-01-31 14:00] VITALS: BP 125/90
--- NOTE | 2019-01-31 15:25 | REP ---
RENAL AND BLADDER ULTRASOUND: Real-time sonographic of the right kidney performed. Patient does not have a left kidney. Right kidney demonstrates diffuse hyperechoic echotexture, measuring 11.7 x 6.8 x 7.0 cm. There is no hydronephrosis. Ureter is mild to moderately dilated, proximately measuring 13 mm, mid aspect 7 mm, and distally near the bladder 11 mm. 7 mm cyst is seen in the upper medial aspect of the right kidney. Urinary bladder is mild to moderately distended with no mass or calculus. A right ureteral jet is visualized. IMPRESSION: No hydronephrosis. There is mild to moderate hydroureter. There is diffuse hyperechoic echotexture of the kidneys suggesting medial renal disease. There is patent flow through the right ureter with a right ureteral jet seen in the urinary bladder. Electronically Signed by Leonard Lund MD 02/02/2019 07:51 A
--- NOTE | 2019-01-31 15:55 | IPNPDOC ---
Date Seen The patient was seen on 01/31/19. Progress Note SUBJECTIVE: Patient is comfortable without complaints. S/P failed stent placement. Patient states a nephrostomy tube fell out in August and his creatinine has been stable around 2.2. LABORATORY DATA, IMAGING STUDIES, MICROBIOLOGY: Please see below. Laboratory Tests 01/30/19 05:36 Red Blood Count 3.71 L, Mean Corpuscular Volume 88.9, Mean Corpuscular Hemoglobin 29.9, Mean Corpuscular Hemoglobin Concent 33.6, Red Cell Distribution Width 13.3, Neutrophils (%) (Auto) 49.7, Lymphocytes (%) (Auto) 36.4, Monocytes (%) (Auto) 8.8 H, Eosinophils (%) (Auto) 4.3 H, Basophils (%) (Auto) 0.6, Neutrophils # (Auto) 2.7, Lymphocytes # (Auto) 1.9, Monocytes # (Auto) 0.5, E osinophils # (Auto) 0.2, Basophils # (Auto) 0.0, Calcium Level 8.2 L 01/31/19 05:46 Red Blood Count 3.58 L, Mean Corpuscular Volume 93.0, Mean Corpuscular Hemoglobin 30.4, Mean Corpuscular Hemoglobin Concent 32.7, Red Cell Distribution Width 13.6, Neutrophils (%) (Auto) 59.0, Lymphocytes (%) (Auto) 30.3, Monocytes (%) (Auto) 8.7 H, Eosinophils (%) (Auto) 1.5, Basophils (%) (Auto) 0.2, Neutrophils # (Auto) 3.5, Lymphocytes # (Auto) 1.8, Monocytes # (Auto) 0.5, Eosinophils # (Auto) 0.1, Basophils # (Auto) 0.0, Calcium Level 8.3 L ASSESSMENT AND PLAN: Patient refuses nephrostomy tube at this time. I discussed with him he is at risk for renal failure. I discussed with him that IR can place a internal double J stent following nephrostomy tube placement. Patient can be D/C to home. Please schedule follow up in two weeks for repeat creatinine. PROBLEMS: 1. solitary kidney with renal insuff. DISPOSITION: home with outpatient follow up in two weeks VS, I&O, 24H, Fishbone Vital Signs/I&O Vital Signs Date Time Temp Pulse Resp B/P (MAP) Pulse Ox O2 Delivery O2 Flow Rate FiO2 01/31/19 14:00 96.8 51 17 125/90 (102) 96 01/28/19 22:35 Room Air I&O- Last 24 Hours up to 6 AM 01/31/19 06:00 Intake Total 2100 ml Output Total 1252 ml Balance 848 ml Laboratory Data 24H LABS Laboratory Tests 2 01/30/19 20:40: Total Creatine Kinase 245, Creatine Kinase MB 1.6, Creatine Kinase MB Relative Index 0.65, Troponin I < 0.02 01/31/19 01:53: Total Creatine Kinase 215, Creatine Kinase MB 1.8, Creatine Kinase MB Relative Index 0.84, Troponin I < 0.02 01/31/19 05:46: Immature Granulocyte % (Auto) 0.3, White Blood Count 6.0, Red Blood Count 3.58L, Hemoglobin 10.9L, Hematocrit 33.3L, Mean Corpuscular Volume 93.0, Mean Corpuscular Hemoglobin 30.4, Mean Corpuscular Hemoglobin Concent 32.7, Red Cell Distribution Width 13.6, Platelet Count 150, Neutrophils (%) (Auto) 59.0, Lymphocytes (%) (Auto) 30.3, Monocytes (%) (Auto) 8.7H, Eosinophils (%) (Auto) 1.5, Basophils (%) (Auto) 0.2, Neutrophils # (Auto) 3.5, Lymphocytes # (Auto) 1.8, Monocytes # (Auto) 0.5, Eosinophils # (Auto) 0.1, Basophils # (Auto) 0.0, Nucleated Red Blood Cells % (auto) 0.0, Anion Gap 5L, Glomerular Filtration Rate 35.2L, Blood Urea Nitrogen 26H, Creatinine 2.36H, Sodium Level 145, Potassium Level 4.5, Chloride Level 116H, Carbon Dioxide Level 24, Calcium Level 8.3L CBC/BMP Laboratory Tests 01/31/19 05:46 Red Blood Count 3.58 L, Mean Corpuscular Volume 93.0, Mean Corpuscular Hemoglobin 30.4, Mean Corpuscular Hemoglobin Concent 32.7, Red Cell Distribution Width 13.6, Neutrophils (%) (Auto) 59.0, Lymphocytes (%) (Auto) 30.3, Monocytes (%) (Auto) 8.7 H, Eosinophils (%) (Auto) 1.5, Basophils (%) (Auto) 0.2, Neutrophils # (Auto) 3.5, Lymphocytes # (Auto) 1.8, Monocytes # (Auto) 0.5, Eosinophils # (Auto) 0.1, Basophils # (Auto) 0.0, Calcium Level 8.3 L Javi Otto MD Jan 31, 2019 15:55
--- NOTE | 2019-01-31 16:43 | CR.PDOC ---
General Date of Consultation: Jan 31, 2019 Referring Provider: YOANA WALLACE MD Consultation REASON FOR CONSULTATION/CHIEF COMPLAINT: Solitary right kidney. Nephrostomy dependent. Nephrostomy fell out. HISTORY OF PRESENT ILLNESS: 28-year-old male with solitary right kidney. Left kidney was removed at age of 3. Patient reports going into ureteral obstruction last year and presented with pain, nausea and vomiting. At which time, he was found to be hydronephrotic and a ureteral stent was placed. Recurrent stent failure led to removal of stent and right-sided nephrostomy catheter placement in August this year. Has had a nephrostomy in place since that time. Nephrostomy catheter fell out several days ago. Patient reports passing good volume urine with ease. Denies fever, chills, pain or nausea or vomiting. Patient reports that in an [place] they told him he may not require a nephrostomy catheter in the future. No outside imaging available. ALLERGIES: Please see below. HOME MEDICATIONS: Please see below. PAST MEDICAL HISTORY: Solitary right kidney. PAST SURGICAL HISTORY: Left nephrectomy. FAMILY HISTORY: Nonsignificant. SOCIAL HISTORY: Self caring. REVIEW OF SYSTEMS: Otherwise negative. Denies fevers, chills, nausea or vomiting. Denies pain. PHYSICAL EXAMINATION: VITAL SIGNS: Please see below. GENERAL APPEARANCE: Appears well. No apparent distress. HEENT: No scleral icterus. RESPIRATORY: Normal breathing at rest. CARDIOVASCULAR: Normal heart rate. ABDOMEN: Nondistended and nontender. No flank tenderness. EXTREMITIES: Moving all 4 extremities. NEUROLOGICAL: Alert and oriented. PSYCHIATRIC: Appropriate to circumstance. LABORATORY DATA: Please see below. I personally reviewed the CT scan from 01/28/2019. There is no significant hydronephrosis. There is mild hydroureter. I reviewed the ultrasound performed today. There is hydroureter. No hydronephrosis. ASSESSMENT/PLAN: 28 male with solitary right kidney previously nephrostomy dependent for presumed ureteral strictures. Failed ureteral stenting retrograde by urology. Patient feels he may not need a nephrostomy catheter. Patient would like to undergo a trial without nephrostomy catheter. Patient understands he may go into obstruc tion again and suffer with pain, fever, chills and even sepsis. Advised patient to present to the ER if any such symptoms should occur. Otherwise follow up with urology as scheduled. Thank you for this referral Vital Signs/I&O Vital Signs Date Time Temp Pulse Resp B/P (MAP) Pulse Ox O2 Delivery O2 Flow Rate FiO2 01/31/19 14:00 96.8 51 17 125/90 (102) 96 01/28/19 22:35 Room Air I&O- Last 24 Hours up to 6 AM 01/31/19 06:00 Intake Total 2100 ml Output Total 1252 ml Balance 848 ml Laboratory Data Labs 24H Laboratory Tests 2 01/30/19 20:40: Total Creatine Kinase 245, Creatine Kinase MB 1.6, Creatine Kinase MB Relative Index 0.65, Troponin I < 0.02 01/31/19 01:53: Total Creatine Kinase 215, Creatine Kinase MB 1.8, Creatine Kinase MB Relative Index 0.84, Troponin I < 0.02 01/31/19 05:46: Immature Granulocyte % (Auto) 0.3, White Blood Count 6.0, Red Blood Count 3.58L, Hemoglobin 10.9L, Hematocrit 33.3L, Mean Corpuscular Volume 93.0, Mean Corpuscular Hemoglobin 30.4, Mean Corpuscular Hemoglobin Concent 32.7, Red Cell Distribution Width 13.6, Platelet Count 150, Neutrophils (%) (Auto) 59.0, Lympho cytes (%) (Auto) 30.3, Monocytes (%) (Auto) 8.7H, Eosinophils (%) (Auto) 1.5, Basophils (%) (Auto) 0.2, Neutrophils # (Auto) 3.5, Lymphocytes # (Auto) 1.8, Monocytes # (Auto) 0.5, Eosinophils # (Auto) 0.1, Basophils # (Auto) 0.0, Nucleated Red Blood Cells % (auto) 0.0, Anion Gap 5L, Glomerular Filtration Rate 35.2L, Blood Urea Nitrogen 26H, Creatinine 2.36H, Sodium Level 145, Potassium Level 4.5, Chloride Level 116H, Carbon Dioxide Level 24, Calcium Level 8.3L CBC/BMP Laboratory Tests 01/31/19 05:46 Red Blood Count 3.58 L, Mean Corpuscular Volume 93.0, Mean Corpuscular Hem oglobin 30.4, Mean Corpuscular Hemoglobin Concent 32.7, Red Cell Distribution Width 13.6, Neutrophils (%) (Auto) 59.0, Lymphocytes (%) (Auto) 30.3, Monocytes (%) (Auto) 8.7 H, Eosinophils (%) (Auto) 1.5, Basophils (%) (Auto) 0.2, Neutrophils # (Auto) 3.5, Lymphocytes # (Auto) 1.8, Monocytes # (Auto) 0.5, Eosinophils # (Auto) 0.1, Basophils # (Auto) 0.0, Calcium Level 8.3 L Allergies Coded Allergies: NSAIDS (Non-Steroidal Anti-Inflamma (Verified Adverse Reaction, Unknown, 01/28/19) Kidney failure Home Medications Scheduled PRN Ibuprofen (Advil) 100 Mg Tablet, 200 MG PO DAILY PRN for GOUT, (Reported) JEAN PAUL CORBETT MD Jan 31, 2019 16:43
[2019-01-31] MEDS: GI COCKTAIL 50ML BTL(HYOSCYAMINE/MAALOX/LIDOCAINE VISCOUS)(1:3:1) PO PRN (16:50)
[2019-01-31 18:00] VITALS: BP 157/96
--- NOTE | 2019-01-31 21:02 | ECGEPIP ---
[facility] Test Date: 2019-01-30 Pat Name: DADA CAST Department: Room: [place] [id number] Gender: Male [employer]: : 1990 Requested By: MARCO JUNIOR Order Number: [id number] Reading MD: Shiva Huff Measurements Intervals [place] Rate: 50 P: 65 WV: 145 QRS: 65 QRSD: 97 T: 23 QT: 407 QTc: 371 Interpretive Statements Sinus bradycardia Normal EKG Comparison tracing not on file Electronically Signed on 01-31-2019 21:01:51 EDT by Shiva Huff
[2019-01-31 22:00] VITALS: BP 134/86
[2019-02-01 06:00] VITALS: BP 127/81
[2019-02-01 06:41] LABS: BASO % 0.3 % (0.0-1.0); EOS # 0.2 10^3/uL (0.0-0.50); EOS % 2.8 % (0.0-3.0); HEMATOCRIT 35.5 % (42.0-52.0); HEMOGLOBIN 11.7 g/dl (13.5-17.5); LYMPH # 1.8 10^3/uL (1.5-6.5); LYMPH % 26.2 % (24.0-44.0); MEAN CORPUSCULAR HEMOGLOBIN 30.5 pg (27.0-33.0); MEAN CORPUSCULAR VOLUME 92.7 fl (80.0-96.0); MONO # 0.4 10^3/uL (0.0-0.8); MONO % 6.5 % (0.0-5.0); NEUTROPHILS # 4.3 10^3/uL (1.8-7.7); NEUTROPHILS % 63.5 % (36.0-66.0); PLATELET COUNT, AUTOMATED 162 10^3/uL (150-450); RED BLOOD COUNT 3.83 10^6/uL (4.30-6.10); WHITE BLOOD COUNT 6.8 10^3/uL (4.0-10.0)
[2019-02-01 06:58] LABS: CALCIUM LEVEL 8.3 MG/DL (8.5-10.1); CREATININE FOR GFR 2.37 MG/DL (0.70-1.30); POTASSIUM SERUM 4.4 MEQ/L (3.5-5.1)
[2019-02-01] MEDS ORDERED: HEPARIN SOD (PORCINE) 5000 UNITS/ML VIAL SQ SCH (09:00)
--- NOTE | 2019-02-01 19:52 | DS.PDOC ---
Discharge Summary General Date of Admission Jan 28, 2019 at 20:22 Date of Discharge February 01, 2019 Specialist/Consultants Involve: JEAN PAUL CORBETT MD Specialist/Consultants Involve Dr. Chan Da Silva of the Urology service. Discharge Summary PROCEDURES PERFORMED DURING STAY: Cystourethroscopy, right retrograde pyelogram. ADMITTING DIAGNOSES: 1. Obstructive uropathy. DISCHARGE DIAGNOSES: 1. Obstructive uropathy, solitary right kidney, chronic kidney disease stage IV. COMPLICATIONS/CHIEF COMPLAINT: Ckd, Stage Iv. HISTORY OF PRESENT ILLNESS/HOSPITAL COURSE: 28-year-old male with history of solitary right kidney; he underwent left nephrectomy at the age of 3. Patient has additional history of obstructive uropathy and had had a nephrostomy tube placed to the right ureter. The nephrostomy tube fell out during showering. Patient had been slightly ill at home and presented with an elevated creatinine of 2.6, my: It had been as high as 3.7. The patient was admitted to the medical floor. He received aggressive IV hydration. He was seen by both urology and nephrology services. The patient did not have significant hydronephrosis but did have some hydroureter. It was not felt that he needed his nephrostomy tube replaced. He will need follow-up with both nephrology and urology services. Creatinine was stable at 2.37 at discharge. [place] Patient did have some insurance issues but apparently will have insurance as of tomorrow, to enable him to obtain medications and transportation to his medical appointments.. DISCHARGE MEDICATIONS: Please see below. ALLERGIES: Please see below. PHYSICAL EXAMINATION ON DISCHARGE: VITAL SIGNS: Please see below. GENERAL: Cooperative, no visible distress HEENT: Neck is supple with no adenopathy or thyromegaly, oral mucosa is moist CARDIOVASCULAR EXAMINATION: Regular rate and rhythm with a normal S1 and S2 RESPIRATORY EXAMINATION: Clear to auscultation with no wheezing or cough ABDOMINAL EXAMINATION: Soft, nondistended, no flank tenderness EXTREMITIES: No peripheral edema NEUROLOGICAL EXAMINATION: No focal neuromotor deficit LABORATORY DATA: Please see below. IMAGING: PROGNOSIS: ACTIVITY: As tolerated. DIET: As tolerated DISCHARGE PLAN: The patient is discharged to home. He is to follow-up with Dr. Chan Da Silva of the urology service within 1-2 weeks. DISPOSITION: 01 Home, Self-Care. DISCHARGE INSTRUCTIONS: 1. . ITEMS TO FOLLOWUP ON ON OUTPATIENT: 1. . DISCHARGE CONDITION: Stable. TIME SPENT ON DISCHARGE: Greater than 30 minutes. Vital Signs/I&Os Vital Signs Date Time Temp Pulse Resp B/P (MAP) Pulse Ox O2 Delivery O2 Flow Rate FiO2 02/01/19 06:00 97.2 62 18 127/81 (96) 95 01/28/19 22:35 Room Air I&O- Last 24 Hours up to 6 AM 02/01/19 06:00 Intake Total 2678 ml Output Total 1175 ml Balance 1503 ml Laboratory Data Labs 24H Laboratory Tests 2 02/01/19 05:55: Immature Granulocyte % (Auto) 0.7, White Blood Count 6.8, Red Blood Count 3.83L, Hemoglobin 11.7L, Hematocrit 35.5L, Mean Corpuscular Volume 92.7, Mean Corpuscular Hemoglobin 30.5, Mean Corpuscular Hemoglobin Concent 33.0, Red Cell Distribution Width 13.4, Platelet Count 162, Neutrophils (%) (Auto) 63.5, Lymphocytes (%) (Auto) 26.2, Monocytes (%) (Auto) 6.5H, Eosinophils (%) (Auto) 2.8, Basophils (%) (Auto) 0.3, Neutrophils # (Auto) 4.3, Lymphocytes # (Auto) 1.8, Monocytes # (Auto) 0.4, Eosinophils # (Auto) 0.2, Basophils # (Auto) 0.0, Nucleated Red Blood Cells % (auto) 0.0, Anion Gap 5L, Glomerular Filtration Rate 35.0L, Blood Urea Nitrogen 36H, Creatinine 2.37H, Sodium Level 145, Potassium Level 4.4, Chloride Level 116H, Carbon Dioxide Level 24, Calcium Level 8.3L CBC/BMP Laboratory Tests 02/01/19 05:55 Red Blood Count 3.83 L, Mean Corpuscular Volume 92.7, Mean Corpuscular Hemoglobin 30.5, Mean Corpuscular Hemoglobin Concent 33.0, Red Cell Distribution Width 13.4, Neutrophils (%) (Auto) 63.5, Lymphocytes (%) (Auto) 26.2, Monocytes (%) (Auto) 6.5 H, Eosinophils (%) (Auto) 2.8, Basophils (%) (Auto) 0.3, Neutrophils # (Auto) 4.3, Lymphocytes # (Auto) 1.8, Monocytes # (Auto) 0.4, Eosinophils # (Auto) 0.2, Basophils # (Auto) 0.0, Calcium Level 8.3 L Discharge Medications Scheduled PRN Ibuprofen (Advil) 100 Mg Tablet, 200 MG PO DAILY PRN for GOUT, (Reported) Allergies Coded Allergies: NSAIDS (Non-Steroidal Anti-Inflamma (Verified Adverse Reaction, Unknown, 01/28/19) Kidney failure JIM LIEBERMAN MD Feb 01, 2019 19:52
== END 2019-02-01 13:46 | disposition home or self-care (01) | DRG 465 ==
LOC: EDBD 16:58 → M ED 16:58 → M ED INP 20:22 → M MSPAV 22:42
PROVIDERS: ADMIT Internal Medicine Nephrology; ATTEND Internal Medicine
PROC: 0TJB8ZZ Inspection of Bladder, Via Natural or Artificial Opening Endoscopic (ICD-10-PCS; principal; 2019-01-30 12:00)
DX: N13.8 Other obstructive and reflux uropathy (principal); N18.4 Chronic kidney disease, stage 4 (severe); Z90.5 Acquired absence of kidney; E16.2 Hypoglycemia, unspecified

== ENCOUNTER 2019-02-05 03:14 | Emergency (ER) | payer MEDICAID, OTHER ==
[~2019-02-05] VITALS: Ht 175.3 cm; Wt 77.3 kg
[~2019-02-05 03:14] MED LIST: ADVI100T PO
[2019-02-05 04:30] LABS: BASO % 0.5 % (0.0-1.0); EOS # 0.2 10^3/uL (0.0-0.50); EOS % 2.9 % (0.0-3.0); HEMATOCRIT 37.1 % (42.0-52.0); HEMOGLOBIN 12.5 g/dl (13.5-17.5); LYMPH # 2.1 10^3/uL (1.5-6.5); LYMPH % 32.9 % (24.0-44.0); MEAN CORPUSCULAR HEMOGLOBIN 30.7 pg (27.0-33.0); MEAN CORPUSCULAR HGB CONC 33.7 g/dl (32.0-36.5); MEAN CORPUSCULAR VOLUME 91.2 fl (80.0-96.0); MONO # 0.5 10^3/uL (0.0-0.8); NEUTROPHILS # 3.6 10^3/uL (1.8-7.7); NEUTROPHILS % 55.4 % (36.0-66.0); PLATELET COUNT, AUTOMATED 207 10^3/uL (150-450); RED BLOOD COUNT 4.07 10^6/uL (4.30-6.10); WHITE BLOOD COUNT 6.5 10^3/uL (4.0-10.0)
[2019-02-05 04:57] LABS: ALBUMIN 3.8 GM/DL (3.2-5.2); ALT/SGPT 24 U/L (12-78); BILIRUBIN,DIRECT < 0.1 MG/DL (0.0-0.2); BILIRUBIN,TOTAL 0.4 MG/DL (0.2-1.0); BLOOD UREA NITROGEN 38 MG/DL (7-18); CALCIUM LEVEL 8.2 MG/DL (8.5-10.1); CARBON DIOXIDE LEVEL 22 MEQ/L (21-32); CHLORIDE LEVEL 110 MEQ/L (98-107); CREATININE FOR GFR 2.39 MG/DL (0.70-1.30); GLOMERULAR FILTRATION RATE 34.7 (>60); GLUCOSE, FASTING 91 MG/DL (70-100); LIPASE 136 U/L (73-393); POTASSIUM SERUM 4.3 MEQ/L (3.5-5.1); SODIUM LEVEL 141 MEQ/L (136-145); TOTAL PROTEIN 6.7 GM/DL (6.4-8.2)
[2019-02-05 10:24] VITALS: BP 133/88
--- NOTE | 2019-03-09 10:42 | REP ---
REPEAT DICTATION CT ABDOMEN AND PELVIS WITHOUT IV OR ORAL CONTRAST: HISTORY: Right flank pain. History of stones. Preliminary report is provided at the time of exam by [facility]. Comparison CT study January 28, 2019. 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 The lung bases are clear with minimal linear fibrosis on the left. The liver and the spleen are normal in size homogeneous in texture. No adrenal lesion is seen. The gallbladder and the pancreas remain unremarkable. There is no left kidney. The right kidney shows prominent lobation pattern. There is fullness of the mid and proximal ureter and renal pelvis on the right but no obstructive lesion is seen. The recent CT study from January 28, 2019 showed mild hydroureter distally. Question reflux nephropathy. No stone is seen. There is some cortical thinning in the lower pole cortex of the right kidney. No stone is seen in the urinary tract. No retroperitoneal mass or adenopathy is observed. There is ascending colon diverticulosis without CT evidence of diverticulitis. No inflammatory lesion is seen in the abdomen. Urinary bladder is unremarkable. Seminal vesicles and prostate are intact. IMPRESSION: Absent left kidney. lobation and cortical scarring right kidney. Right hydroureter and mildly dilated renal pelvis on the right suggestive of reflux. No obstructive lesion is appreciated. Colonic diverticulosis noted. Electronically Signed by Hany Corado MD 03/09/2019 10:55 A
== END 2019-02-05 10:27 | disposition home or self-care (01) ==
LOC: M ED 03:14
DX: N13.9 Obstructive and reflux uropathy, unspecified (principal); Z88.8 Allergy status to other drugs, medicaments and biological substances

== ENCOUNTER 2019-05-04 13:29 | Emergency (ER) | payer MEDICAID ==
[~2019-05-04] VITALS: Ht 175.3 cm; Wt 84.0 kg
[2019-05-04 13:30] VITALS: BP 141/84
--- NOTE | 2019-05-04 15:03 | REP ---
Right wrist: Four views. History: Pain after trauma. Findings: Five views of the right wrist show normal bones, joints and soft tissues. No change from right hand radiographs July 27, 2007. Impression: No fracture seen. Negative right wrist radiographs. Electronically Signed by Hany Corado MD 05/04/2019 04:54 P
== END 2019-05-04 15:35 | disposition home or self-care (01) ==
LOC: M ED 13:29
DX: S63.501A Unspecified sprain of right wrist, initial encounter (principal); W19.XXXA Unspecified fall, initial encounter; Y92.410 Unspecified street and highway as the place of occurrence of the external cause; Y93.55 Activity, bike riding; Y99.9 Unspecified external cause status; N18.9 Chronic kidney disease, unspecified; F17.200 Nicotine dependence, unspecified, uncomplicated; Z88.6 Allergy status to analgesic agent

== ENCOUNTER 2019-07-01 00:02 | Emergency (ER) | payer OTHER ==
[~2019-07-01] VITALS: Ht 175.3 cm; Wt 80.0 kg
[2019-07-01 01:40] LABS: BASO % 0.4 % (0.0-1.0); EOS # 0.3 10^3/uL (0.0-0.5); EOS % 3.5 % (0.0-3.0); HEMATOCRIT 43.6 % (42.0-52.0); HEMOGLOBIN 13.5 g/dl (13.5-17.5); LYMPH # 1.7 10^3/uL (1.5-5.0); LYMPH % 22.1 % (24.0-44.0); MEAN CORPUSCULAR HEMOGLOBIN 28.7 pg (27.0-33.0); MEAN CORPUSCULAR VOLUME 92.8 fl (80.0-96.0); MONO # 0.5 10^3/uL (0.0-0.8); MONO % 6.3 % (0.0-5.0); NEUTROPHILS # 5.1 10^3/uL (1.5-8.5); NEUTROPHILS % 67.4 % (36.0-66.0); PLATELET COUNT, AUTOMATED 199 10^3/uL (150-450); WHITE BLOOD COUNT 7.5 10^3/uL (4.0-10.0)
[2019-07-01 01:51] LABS: ALBUMIN 3.5 GM/DL (3.2-5.2); ALT/SGPT 33 U/L (12-78); BILIRUBIN,DIRECT < 0.1 MG/DL (0.0-0.2); BILIRUBIN,TOTAL 0.2 MG/DL (0.2-1.0); BLOOD UREA NITROGEN 64 MG/DL (7-18); CALCIUM LEVEL 8.6 MG/DL (8.5-10.1); CARBON DIOXIDE LEVEL 24 MEQ/L (21-32); CHLORIDE LEVEL 109 MEQ/L (98-107); CREATININE FOR GFR 2.61 MG/DL (0.70-1.30); GLOMERULAR FILTRATION RATE 31.3 (>60); GLUCOSE, FASTING 96 MG/DL (70-100); LIPASE 105 U/L (73-393); POTASSIUM SERUM 5.2 MEQ/L (3.5-5.1); SODIUM LEVEL 141 MEQ/L (136-145)
--- NOTE | 2019-07-01 04:44 | REPVR ---
PROCEDURE INFORMATION: Exam: CT Abdomen And Pelvis Without Contrast Exam date and time: 07/01/2019 2:28 AM Age: 28 years old Clinical indication: Abdominal pain; Flank; Right; Additional info: Right flank pain TECHNIQUE: Imaging protocol: Computed tomography of the abdomen and pelvis without contrast. Radiation optimization: All CT scans at this facility use at least one of these dose optimization techniques: automated exposure control; mA and/or kV adjustment per patient size (includes targeted exams where dose is matched to clinical indication); or iterative reconstruction. COMPARISON: CT ABD PELVIS W/O CONTRAST 02/05/2019 7:26 AM FINDINGS: Lungs: The visualized portions of the lung bases are normal. Liver: The unenhanced liver appears unremarkable. Gallbladder and bile ducts: The gallbladder is contracted, limiting its assessment. No definite stones identified. There is no biliary ductal dilation. Pancreas: The pancreas appears unremarkable. No pancreatic ductal dilation identified. Spleen: The unenhanced spleen appears unremarkable. Adrenals: The adrenal glands are normal. Kidneys and ureters: The left kidney is absent. The right kidney is lobular in contour and the parenchyma appears thinned in the lower pole, likely due to scar. There is a punctate focus of calcification toward the lower pole which is probably parenchymal rather than a stone. There is no significant hydronephrosis at the kidney. There is segmental fullness of the mid right ureter and again at the distal right ureter, but it is smaller in caliber than on the prior exam. No ureteral stones are identified. Stomach and bowel: Mild diverticulosis is present in the colon. There is no dilation or thickening of the colon. The small bowel appears unremarkable. Appendix: A normal appendix is identified. Intraperitoneal space: There is no evidence of free intraperitoneal or pelvic fluid. There is no free intraperitoneal air. Vasculature: No aortic aneurysm. Lymph nodes: No lymphadenopathy is seen. Bladder: There is slight thickening of the bladder wall, similar to the prior exam. No bladder stones are identified. Reproductive: The prostate gland and seminal vesicles are normal. Bones/joints: No suspicious osseous lesions. No acute fractures or dislocations. Soft tissues: Unremarkable. IMPRESSION: 1. Solitary right kidney with a lobular contour of the kidney and parenchymal thinning consistent with scar, especially in the lower pole, but without significant change from the prior exam. 2. No significant hydronephrosis. Segments of mild right ureteral dilation, but the ureter is smaller in caliber than on the prior exam. No obstructing stones identified. 3. Slight thickening of the bladder wall, similar to the prior exam. Electronically signed by: Mikki Rhoades On 07/01/2019 04:43:43 AM
[2019-07-01 06:32] VITALS: BP 121/66
== END 2019-07-01 06:36 | disposition home or self-care (01) ==
LOC: M ED 00:02
DX: R10.9 Unspecified abdominal pain (principal); F17.210 Nicotine dependence, cigarettes, uncomplicated; J45.909 Unspecified asthma, uncomplicated; Z88.6 Allergy status to analgesic agent

== ENCOUNTER 2021-04-28 17:48 | Emergency (ER) | payer MEDICAID ==
[~2021-04-28] VITALS: Ht 175.3 cm; Wt 87.8 kg
--- OUTSIDE RECORDS SUMMARY | 2021-04-28 17:55 | CCD ---
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 Name Role Phone Boone, Alva Dia Unavailable Unavailable Boone, Alva Dia Unavailable Unavailable Boone, Alva Dia Unavailable Unavailable Boone, Alva Dia Unavailable Unavailable Boone, Alva Dia Unavailable Unavailable Boone, Alva Dia Unavailable Unavailable Boone, Alva Dia Unavailable Unavailable Boone, Alva Dia Unavailable Unavailable Boone, Alva Dia Unavailable Unavailable Boone, Alva Dia Unavailable Unavailable Boone, Alva Dia Unavailable Unavailable Boone, Alva Dia Unavailable Unavailable Boone, Alva Dia Unavailable Unavailable Re-disclosure Warning The records that you are about to access may contain information from federally-assisted alcohol or drug abuse programs. If such information is present, then the following federally mandated warning applies: This information has been disclosed to you from records protected by federal confidentiality rules (42 CFR part 2). The federal rules prohibit you from making any further disclosure of this information unless further disclosure is expressly permitted by the written consent of the person to whom it pertains or as otherwise permitted by 42 CFR part 2. A general authorization for the release of medical or other information is NOT sufficient for this purpose. The Federal rules restrict any use of the information to criminally investigate or prosecute any alcohol or drug abuse patient.The records that you are about to access may contain highly sensitive health information, the redisclosure of which is protected by Article 27-F of the [facility] Public Health law. If you continue you may have access to information: Regarding HIV / AIDS; Provided by facilities licensed or operated by the [facility] Office of Mental Health; or Provided by the [facility] Office for People With Developmental Disabilities. If such information is present, then the following [facility] mandated warning applies: This information has been disclosed to you from confidential records which are protected by state law. State law prohibits you from making any further disclosure of this information without the specific written consent of the person to whom it pertains, or as otherwise permitted by law. Any unauthorized further disclosure in violation of state law may result in a fine or group home sentence or both. A general authorization for the release of medical or other information is NOT sufficient authorization for further disc losure. Allergies and Adverse Reactions Type Description Substance Reaction Status Data Source(s ) Allergy to substance Allergy to substance Allergy to substance [facility]) Encounters Encounter Providers Location Date Indications Data Source(s ) RIK Troy-C: [address] [place] [phone], Ph. Attender: Dia Boone [facility] Medical 10/03/2020 12:00:00 AM EDT [place] ([facility]) Immunizations Vaccine Date Status Description Data Source(s) COVID-19, mRNA, LNP-S, PF, 100 mcg/0.5 mL dose 10/03/2020 10 :22:43 AM EDT completed 10.5 mL [place] ([facility]) COVID-19 VACCINE Moderna 10/03/2020 12:00:00 AM EDT completed [facility] Vaccine Series Complete: NOThis Data was Submitted to [facility] Via [email or web address]. Medications No Information Insurance Providers Payer name Policy type / Coverage type Policy ID Covered democrat ID Covered democrat's relationship to guerra Policy Guerra Plan Information [facility] MEDICAID [id number] SP [id number] C SELF PAY ONLY [id number] SP [id number] COUNT INCLUDES THE [facility] COMMUNITY PLAN MCDO [id number] SP [id number] Managed Care - [facility] Community Plan P UNAVAILABLE S UNAVAILABLE Medicaid S UNAVAILABLE S UNAVAILA [facility](MCAID) O [id number] S [id number] [employer] COMMUNITY PLAN MCDO [id number] SP [id number] MEDICAID [id number] SP [id number] MEDICAID [id number] S [id number] DMAS [id number] S [id number] O UNAVAILABLE UNAVAILA BLE ANSI-Commercial [id number] [facility] [id number] S [id number] DMAS [id number] S [id number] NCO EPALS [id number] SP [id number] PENDING GOVT INSURANCE [id number] SP [id number] ANSI-Commercial [id number] SELF PAY SP ANSI-Commercial [id number] [facility] [id number] S [id number] [facility] [id number] S [id number] Problems, Conditions, and Diagnoses No Information Surgeries/Procedures No Information Results No Information Social History No Information
[2021-04-28 20:52] LABS: RSV AMPLIFICATION NEGATIVE (NEGATIVE)
--- OUTSIDE RECORDS SUMMARY | 2021-04-28 22:39 | CCD ---
Author Author [facility] Organization [facility] Address Unknown Phone Unavailable Care Team Providers Care Charge Coordinator Name Role Phone Boone, [place] Dia Unavailable Unavailable Boone, [place] Dia Unavailable Unavailable Boone, [place] Dia Unavailable Unavailable Boone, [place] Dia Unavailable Unavailable Boone, [place] Dia Unavailable Unavailable Boone, [place] Dia Unavailable Unavailable Boone, [place] Dia Unavailable Unavailable Boone, [place] Dia Unavailable Unavailable Boone, [place] Dia Unavailable Unavailable Boone, [place] Dia Unavailable Unavailable Boone, [place] Dia Unavailable Unavailable Boone, [place] Dia Unavailable Unavailable Boone, [place] Dia Unavailable Unavailable Re-disclosure Warning The records [...] is protected by Article 27-F of the [facility] Public Health law. If you continue you may have access to information: Regarding HIV / AIDS; Provided by facilities licensed or operated by the [facility] Office of Mental Health; or Provided by the [facility] Office for People With Developmental Disabilities. If such information is present, then the following [facility] mandated warning applies: This information has been [...] law may result in a fine or skilled nursing sentence or both. A general authorization for the release of medical or other information is NOT sufficient authorization for further disc losure. Allergies and Adverse Reactions Type Description Substance Reaction Status Data Source(s ) Allergy to substance Allergy to substance Allergy to substance [facility]) Encounters Encounter Providers Location Date Indications Data Source(s ) RIK Troy-C: [address] [place] [phone], Ph. Attender: Dia Boone [facility] Medical 10/03/2020 12:00:00 AM EDT [place] ([facility]) Immunizations Vaccine Date Status Description Data Source(s) COVID-19, mRNA, LNP-S, PF, 100 mcg/0.5 mL dose 10/03/2020 10 :22:43 AM EDT completed 10.5 mL [place] ([facility]) COVID-19 VACCINE Moderna 10/03/2020 12:00:00 AM EDT completed [facility] Vaccine Series Complete: NOThis Data was Submitted to [facility] Via [email or web address]. Medications No Information Insurance Providers Payer name Policy type / Coverage type Policy ID Covered republican ID Covered republican's relationship to guerra Policy Guerra Plan Information [facility] MEDICAID [id number] SP [id number] C SELF PAY ONLY [id number] SP [id number] [facility] COMMUNITY PLAN MCDO [id number] SP [id number] Managed Care - [facility] Community Plan P UNAVAILABLE S UNAVAILABLE Medicaid S UNAVAILABLE S U[facility]VAILA [facility]) O [id number] S [id number] [employer] COMMUNITY PLAN MCDO [id number] SP [id number] MEDICAID [id number] SP [id number] MEDICAID [id number] S [id number] DMAS [id number] S [id number] O UNAVAILABLE UNAVAILA BLE ANSI-Commercial [id number] [facility] [id number] S [id number] DMAS [id number] S [id number] NCO EPALS [id number] SP [id number] PENDING GOVT INSURANCE [id number] SP [id number] ANSI-Commercial [id number] SELF PAY SP ANSI-Commercial [id number] [facility] [id number] S [id number] [facility] [id number] S [id number] Problems, Conditions, and Diagnoses No Information Surgeries/Procedures No Information Results No Information Social History No Information
[2021-04-28 22:52] VITALS: BP 123/65
== END 2021-04-28 22:53 | disposition home or self-care (01) ==
LOC: M ED 17:48
DX: B34.9 Viral infection, unspecified (principal); Z88.8 Allergy status to other drugs, medicaments and biological substances; Z87.448 Personal history of other diseases of urinary system

== ENCOUNTER → 2022-06-11 | Outpatient (REF) | payer OTHER ==
[2022-06-11 22:47] LABS: APPEARANCE, URINE MANUAL CLEAR (CLEAR); COLOR, URINE MANUAL YELLOW (YELLOW); SPECIFIC GRAVITY,URINE MANUAL 1.015 (1.002-1.035)
[2022-06-11 22:48] LABS: BILIRUBIN, URINE MANUAL NEGATIVE (NEGATIVE); BLOOD URINE MANUAL POSITIVE (NEGATIVE); GLUCOSE, URINE (UA) MANUAL TRACE(50 MG/DL) mg/dL (NEGATIVE); KETONE, URINE MANUAL NEGATIVE (NEGATIVE); LEUKOCYTE ESTERASE, URINE MAN NEGATIVE (NEGATIVE); NITRITE, URINE MANUAL NEGATIVE (NEGATIVE); PROTEIN, URINE MANUAL 3+ mg/dL (NEGATIVE); UROBILINOGEN, URINE MANUAL NORMAL (NORMAL)
[2022-06-11 22:54] LABS: WBC, URINE 0-1 /hpf (0-3)
[2022-06-11 22:55] LABS: BACTERIA, URINE NONE SEEN; HYALINE CAST, URINE NONE SEEN /lpf (0-1); MUCUS, URINE SMALL AMOUNT (NEGATIVE); SQUAMOUS EPITHELIAL CELL URINE SMALL AMOUNT /hpf (SMALL AMT)
[2022-06-11 22:56] LABS: AMORPHOUS SEDIMENT, URINE SMALL AMOUNT (NEGATIVE)
== END ==
LOC: M LAB REF 22:21
PROVIDERS: ATTEND Physician Assistant
DX: N39.0 Urinary tract infection, site not specified (principal)

== ENCOUNTER → 2022-09-27 | Outpatient (REF) | payer OTHER ==
[2022-09-27 17:36] LABS: APPEARANCE, URINE CLEAR (CLEAR); BACTERIA, URINE AUTO NEGATIVE (NEGATIVE); BILIRUBIN, URINE AUTO NEGATIVE (NEGATIVE); BLOOD, URINE BLOOD 1+ (NEGATIVE); COLOR, URINE STRAW (YELLOW); GLUCOSE, URINE (UA) AUTO 2+ mg/dL (NEGATIVE); KETONE, URINE AUTO NEGATIVE (NEGATIVE); LEUKOCYTE ESTERASE, URINE AUTO NEGATIVE (NEGATIVE); NITRITE, URINE AUTO NEGATIVE (NEGATIVE); PROTEIN, URINE AUTO 3+ mg/dL (NEGATIVE); RBC, URINE AUTO 0 /HPF (0-3); SPECIFIC GRAVITY URINE AUTO 1.009 (1.002-1.035); SQUAMOUS EPITHELIAL CELL UR AU 0 /HPF (0-6); UROBILINOGEN, URINE AUTO 0.2 mg/dL (0.0-2.0); WBC, URINE AUTO 0 /HPF (0-3)
== END ==
LOC: M LAB REF 17:24
PROVIDERS: ATTEND Physician Assistant Medical
DX: N39.0 Urinary tract infection, site not specified (principal)

== ENCOUNTER 2022-10-05 14:24 | Emergency (ER) | payer OTHER ==
[~2022-10-05] VITALS: Ht 175.3 cm; Wt 84.7 kg
[2022-10-05 14:24] VITALS: BP 145/84
[~2022-10-05 14:24] MED LIST changes: -METH-1164 PO; -PRED20TA PO
[2022-10-05] MEDS ORDERED: methocarbamoL 500 MG TAB PO ONE (18:00)
[2022-10-05] MEDS ORDERED: predniSONE 20 MG TAB PO ONE (18:00)
[2022-10-05] MEDS ORDERED: PRED20TA PO (18:04)
[2022-10-05] MEDS ORDERED: METH-1164 PO (18:04)
== END 2022-10-05 18:35 | disposition home or self-care (01) ==
LOC: M ED 14:24
DX: M25.552 Pain in left hip (principal); J45.909 Unspecified asthma, uncomplicated; G47.33 Obstructive sleep apnea (adult) (pediatric); N18.9 Chronic kidney disease, unspecified; F17.200 Nicotine dependence, unspecified, uncomplicated; Z88.6 Allergy status to analgesic agent
CPT/HCPCS: 73502; 99282; J7512

== ENCOUNTER → 2022-10-05 | Outpatient (CLI) | payer OTHER ==
[~2022-10-05] MED LIST changes: +METH-1164 PO; +PRED20TA PO
[2022-10-05 14:23] LABS: BASO % 0.3 % (0.0-1.0); EOS # 0.2 10^3/uL (0.0-0.5); EOS % 3.3 % (0.0-3.0); HEMATOCRIT 31.5 % (42.0-52.0); HEMOGLOBIN 9.6 g/dl (13.5-17.5); LYMPH # 0.9 10^3/uL (1.5-5.0); LYMPH % 14.8 % (24.0-44.0); MEAN CORPUSCULAR HEMOGLOBIN 27.6 pg (27.0-33.0); MEAN CORPUSCULAR HGB CONC 30.5 g/dl (32.0-36.5); MEAN CORPUSCULAR VOLUME 90.5 fl (80.0-96.0); MONO # 0.3 10^3/uL (0.0-0.8); MONO % 5.2 % (2.0-8.0); NEUTROPHILS # 4.4 10^3/uL (1.5-8.5); NEUTROPHILS % 75.9 % (36.0-66.0); PLATELET COUNT, AUTOMATED 197 10^3/uL (150-450); RED BLOOD COUNT 3.48 10^6/uL (4.30-6.10); WHITE BLOOD COUNT 5.8 10^3/uL (4.0-10.0)
[2022-10-05 14:51] LABS: CALCIUM LEVEL 7.1 MG/DL (8.5-10.1); CREATININE FOR GFR 7.62 MG/DL (0.70-1.30); GLOMERULAR FILTRATION RATE 8.8 (>60); POTASSIUM SERUM 5.7 MMOL/L (3.5-5.1)
[2022-10-05 15:23] LABS: HEMOGLOBIN A1c 5.3 % (4.0-6.0)
== END ==
LOC: M LAB 13:45
PROVIDERS: ATTEND Physician Assistant Medical
DX: R81 Glycosuria (principal)

== ENCOUNTER 2022-10-08 20:44 | Emergency (ER) | payer OTHER ==
[~2022-10-08] VITALS: Ht 175.3 cm; Wt 86.2 kg
[~2022-10-08 20:44] MED LIST changes: +METH-1164 PO; +PRED20TA PO
[2022-10-08 20:46] VITALS: BP 148/97
== END 2022-10-08 23:25 | disposition left against medical advice (07) ==
LOC: M ED 20:44
DX: R53.83 Other fatigue (principal); Z53.9 Procedure and treatment not carried out, unspecified reason; N18.9 Chronic kidney disease, unspecified; J45.909 Unspecified asthma, uncomplicated; G47.33 Obstructive sleep apnea (adult) (pediatric); Z79.899 Other long term (current) drug therapy; Z88.6 Allergy status to analgesic agent

== ENCOUNTER → 2023-01-30 | Outpatient (CLI) | payer OTHER ==
[2023-01-30 16:13] LABS: APPEARANCE, URINE CLEAR (CLEAR); BACTERIA, URINE AUTO NEGATIVE (NEGATIVE); BILIRUBIN, URINE AUTO NEGATIVE (NEGATIVE); BLOOD, URINE BLOOD 1+ (NEGATIVE); COLOR, URINE STRAW (YELLOW); GLUCOSE, URINE (UA) AUTO 1+ mg/dL (NEGATIVE); KETONE, URINE AUTO NEGATIVE (NEGATIVE); LEUKOCYTE ESTERASE, URINE AUTO NEGATIVE (NEGATIVE); NITRITE, URINE AUTO NEGATIVE (NEGATIVE); PROTEIN, URINE AUTO 2+ mg/dL (NEGATIVE); RBC, URINE AUTO 1 /HPF (0-3); SPECIFIC GRAVITY URINE AUTO 1.009 (1.002-1.035); SQUAMOUS EPITHELIAL CELL UR AU 0 /HPF (0-6); UROBILINOGEN, URINE AUTO 0.2 mg/dL (0.0-2.0); WBC, URINE AUTO 0 /HPF (0-3)
[2023-01-30 16:23] LABS: BASO % 0.3 % (0.0-1.0); EOS # 0.2 10^3/uL (0.0-0.5); EOS % 2.9 % (0.0-3.0); HEMATOCRIT 30.7 % (42.0-52.0); HEMOGLOBIN 9.8 g/dl (13.5-17.5); LYMPH # 1.1 10^3/uL (1.5-5.0); LYMPH % 17.1 % (24.0-44.0); MEAN CORPUSCULAR HGB CONC 31.9 g/dl (32.0-36.5); MEAN CORPUSCULAR VOLUME 87.7 fl (80.0-96.0); MONO # 0.3 10^3/uL (0.0-0.8); MONO % 5.5 % (2.0-8.0); NEUTROPHILS # 4.5 10^3/uL (1.5-8.5); NEUTROPHILS % 73.9 % (36.0-66.0); PLATELET COUNT, AUTOMATED 189 10^3/uL (150-450); WHITE BLOOD COUNT 6.1 10^3/uL (4.0-10.0)
[2023-01-30 16:41] LABS: FERRITIN 34.5 NG/ML (10.5-307.3); TOTAL 25(OH) VITAMIN D 24.9 NG/ML (20.0-100.0)
[2023-01-30 16:46] LABS: TOTAL IRON BINDING CAPACITY 302 UG/DL (250-425)
[2023-01-30 16:47] LABS: IRON (FE) 60 UG/DL (65-175); PERCENT SATURATION 19.9 % (19.7-50.0)
[2023-01-30 16:49] LABS: THYROID STIMULATING HORMONE 1.684 uIU/ML (0.55-4.78)
[2023-01-30 17:20] LABS: ALKALINE PHOSPHATASE 56 U/L (46-116); ALT/SGPT 14 U/L (7.0-40); AST/SGOT < 8 U/L (<34); BILIRUBIN,TOTAL 0.3 MG/DL (0.3-1.2); BLOOD UREA NITROGEN 98 MG/DL (9-23); CALCIUM LEVEL 8.2 MG/DL (8.5-10.1); CARBON DIOXIDE LEVEL 18 MMOL/L (20-31); CHLORIDE LEVEL 112 MMOL/L (98-107); CHOLESTEROL LEVEL 172 MG/DL (<200); CHOLESTEROL RISK RATIO 6.27 (<5); CREATININE FOR GFR 8.12 MG/DL (0.70-1.30); GLOMERULAR FILTRATION RATE 8.2 (>60); GLUCOSE, FASTING 90 MG/DL (60-100); HDL CHOLESTEROL 27.4 MG/DL (>40); LDL CHOLESTEROL 93.4 MG/DL (<100); NON-HDL-C 144.6 MG/DL; SODIUM LEVEL 142 MMOL/L (136-145); TOTAL PROTEIN 6.7 G/DL (5.7-8.2); TRIGLYCERIDES LEVEL 256 MG/DL (<150)
[2023-01-30 18:43] LABS: HEMOGLOBIN A1c 5.3 % (4.0-6.0)
== END ==
LOC: M LAB 15:42
PROVIDERS: ATTEND Physician Assistant
DX: R19.5 Other fecal abnormalities (principal); R94.4 Abnormal results of kidney function studies; R73.9 Hyperglycemia, unspecified; Z13.228 Encounter for screening for other metabolic disorders

== ENCOUNTER 2023-02-02 17:07 | Emergency (ER) | payer OTHER ==
[~2023-02-02] VITALS: Ht 175.3 cm; Wt 80.3 kg
[2023-02-02 17:07] VITALS: BP 136/97; TEMP 98.5; O2SAT 96
[2023-02-02 18:16] LABS: HEMATOCRIT 29.9 % (42.0-52.0); HEMOGLOBIN 9.7 g/dl (13.5-17.5); MEAN CORPUSCULAR HEMOGLOBIN 28.6 pg (27.0-33.0); MEAN CORPUSCULAR HGB CONC 32.4 g/dl (32.0-36.5); MEAN CORPUSCULAR VOLUME 88.2 fl (80.0-96.0); PLATELET COUNT, AUTOMATED 188 10^3/uL (150-450); RED BLOOD COUNT 3.39 10^6/uL (4.30-6.10); WHITE BLOOD COUNT 6.3 10^3/uL (4.0-10.0)
[2023-02-02 18:32] LABS: APPEARANCE, URINE CLEAR (CLEAR); BACTERIA, URINE AUTO NEGATIVE (NEGATIVE); BILIRUBIN, URINE AUTO NEGATIVE (NEGATIVE); BLOOD, URINE BLOOD 1+ (NEGATIVE); COLOR, URINE STRAW (YELLOW); GLUCOSE, URINE (UA) AUTO 3+ mg/dL (NEGATIVE); KETONE, URINE AUTO NEGATIVE (NEGATIVE); LEUKOCYTE ESTERASE, URINE AUTO NEGATIVE (NEGATIVE); NITRITE, URINE AUTO NEGATIVE (NEGATIVE); PROTEIN, URINE AUTO 2+ mg/dL (NEGATIVE); RBC, URINE AUTO 0 /HPF (0-3); SPECIFIC GRAVITY URINE AUTO 1.007 (1.002-1.035); SQUAMOUS EPITHELIAL CELL UR AU 0 /HPF (0-6); UROBILINOGEN, URINE AUTO 0.2 mg/dL (0.0-2.0); WBC, URINE AUTO 0 /HPF (0-3)
[2023-02-02 18:33] LABS: ALBUMIN 3.9 G/DL (3.2-5.2); ALKALINE PHOSPHATASE 57 U/L (46-116); ALT/SGPT 12 U/L (7.0-40); AST/SGOT < 8 U/L (<34); BILIRUBIN,TOTAL 0.2 MG/DL (0.3-1.2); BLOOD UREA NITROGEN 96 MG/DL (9-23); CALCIUM LEVEL 8.3 MG/DL (8.5-10.1); CARBON DIOXIDE LEVEL 21 MMOL/L (20-31); CHLORIDE LEVEL 112 MMOL/L (98-107); CREATININE FOR GFR 7.96 MG/DL (0.70-1.30); GLOMERULAR FILTRATION RATE 8.4 (>60); GLUCOSE, FASTING 97 MG/DL (60-100); POTASSIUM SERUM 5.4 MMOL/L (3.5-5.1); SODIUM LEVEL 144 MMOL/L (136-145); TOTAL PROTEIN 6.7 G/DL (5.7-8.2)
== END 2023-02-02 21:00 | disposition left against medical advice (07) ==
LOC: M ED 17:07
DX: Z53.21 Procedure and treatment not carried out due to patient leaving prior to being seen by health care provider (principal)

== ENCOUNTER → 2023-02-12 | Outpatient (REF) | payer OTHER ==
[2023-02-12 19:11] LABS: HEPATITIS B SURFACE ANTIBODY NEGATIVE (POSITIVE)
[2023-02-12 19:44] LABS: HEPATITIS B CORE ANTIBODY IGM NEGATIVE (NEGATIVE)
== END ==
LOC: M LAB REF 17:29
PROVIDERS: ATTEND Internal Medicine Nephrology
DX: N18.6 End stage renal disease (principal)

== ENCOUNTER 2023-08-14 14:09 | Inpatient (IN) | payer OTHER ==
[~2023-08-14] VITALS: Ht 170.2 cm; Wt 79.6 kg
[2023-08-14 17:21] LABS: BASO % 0.2 % (0.0-1.0); EOS # 0.2 10^3/uL (0.0-0.5); EOS % 3.4 % (0.0-3.0); LYMPH # 0.8 10^3/uL (1.5-5.0); LYMPH % 14.3 % (24.0-44.0); MEAN CORPUSCULAR HEMOGLOBIN 29.7 pg (27.0-33.0); MEAN CORPUSCULAR HGB CONC 31.8 g/dl (32.0-36.5); MEAN CORPUSCULAR VOLUME 93.2 fl (80.0-96.0); MONO # 0.3 10^3/uL (0.0-0.8); MONO % 5.2 % (2.0-8.0); NEUTROPHILS % 76.5 % (36.0-66.0); PLATELET COUNT, AUTOMATED 147 10^3/uL (150-450); RED BLOOD COUNT 1.92 10^6/uL (4.30-6.10); WHITE BLOOD COUNT 5.2 10^3/uL (4.0-10.0)
[2023-08-14 17:36] LABS: HEMATOCRIT 17.9 % (42.0-52.0)
[2023-08-14 17:37] LABS: HEMOGLOBIN 5.7 g/dl (13.5-17.5)
[2023-08-14] MEDS ORDERED: NS 1,000 ML IV ONE (17:45)
[2023-08-14 17:46] LABS: LIPASE 74 U/L (12-53)
[2023-08-14 17:59] LABS: ALBUMIN 3.5 G/DL (3.2-5.2); ALKALINE PHOSPHATASE 59 U/L (46-116); ALT/SGPT 28 U/L (7.0-40); AST/SGOT 12 U/L (<34); BILIRUBIN,DIRECT < 0.1 MG/DL (<0.4); BILIRUBIN,TOTAL < 0.2 MG/DL (0.3-1.2); BLOOD UREA NITROGEN > 150 MG/DL (9-23); CALCIUM LEVEL 6.5 MG/DL (8.5-10.1); CARBON DIOXIDE LEVEL 16 MMOL/L (20-31); CHLORIDE LEVEL 111 MMOL/L (98-107); CREATININE FOR GFR 15.07 MG/DL (0.70-1.30); GLUCOSE, FASTING 111 MG/DL (60-100); SODIUM LEVEL 141 MMOL/L (136-145); TOTAL PROTEIN 5.7 G/DL (5.7-8.2)
[2023-08-14] MEDS: DEXTROSE 50% 50ML SYRINGE IV STA (18:47)
[2023-08-14 18:49] LABS: INR 1.16; PROTHROMBIN TIME 14.5 SECONDS (12.5-14.5)
[2023-08-14] MEDS: HumuLIN R (REGULAR) INSULIN (NovoLIN R) **100U/ML** PER UNIT IV STA (18:49)
[2023-08-14 18:50] LABS: PARTIAL THROMBOPLASTIN TIME 27.7 SECONDS (24.8-34.2)
[2023-08-14 18:50] LABS: CK-MB VALUE MASS 6.2 NG/ML (<3.6)
[2023-08-14] MEDS: CALCIUM CHLORIDE 10% 1 GM in D5W 100 ML IV ONE (18:50)
[2023-08-14 18:51] LABS: MB/CK RELATIVE INDEX 0.58 (< OR =4)
[2023-08-14 19:09] LABS: RSV AMPLIFICATION NEGATIVE (NEGATIVE)
[2023-08-14] MEDS: LIDOCAINE 2% 5ML JELLY UROJET TOP ONE (19:30)
[2023-08-14] MEDS ORDERED: HOME MED LIST COMPLETE! XX SCH (20:15)
[2023-08-14 21:33] VITALS: BP 189/103; TEMP 96.6
[2023-08-14 21:48] VITALS: BP 180/92; TEMP 97; O2SAT 97
[2023-08-14 22:33] VITALS: BP 177/90; TEMP 97.6; O2SAT 98
[2023-08-14] MEDS: ONDANSETRON 4MG 2ML VIAL IV ONE (22:59)
[2023-08-14 23:36] VITALS: BP 180/91; TEMP 97.6; O2SAT 97
[2023-08-15] VITALS (13 sets, daily range): BP systolic 163–186; BP diastolic 74–89; TEMP 97.4–98.7; O2SAT 91–99
[2023-08-15] MEDS ORDERED: ISOVUE-300 61% 100ML VIAL As Ordered ONE (00:24)
[2023-08-15] MEDS ORDERED: INSULIN LISPRO (NovoLOG) PER UNIT As Ordered ONE (00:35)
[2023-08-15] MEDS ORDERED: DEXTROSE 50% 50ML SYRINGE As Ordered ONE (00:37)
[2023-08-15 00:38] LABS: CALCIUM LEVEL 6.5 MG/DL (8.5-10.1); CREATININE FOR GFR 14.39 MG/DL (0.70-1.30); GLOMERULAR FILTRATION RATE 4.2 (>60); POTASSIUM SERUM 7.2 MMOL/L (3.5-5.1)
[2023-08-15] MEDS ORDERED: CIPROFLOXACIN/D5W 400 MG/200 ML BAG As Ordered ONE (00:55)
[2023-08-15] MEDS ORDERED: fentaNYL 100 MCG/2 ML INJECTION As Ordered ONE (01:06)
[2023-08-15] MEDS ORDERED: MIDAZOLAM INJ 2MG/2ML VIAL As Ordered ONE (01:06)
[2023-08-15] MEDS ORDERED: LIDOCAINE 2% 100MG/5ML SDV (FOR ANES.) As Ordered ONE (01:06)
[2023-08-15] MEDS ORDERED: propofoL 200 MG/20 ML VIAL As Ordered ONE (01:06)
[2023-08-15] MEDS ORDERED: ROCURONIUM BROMIDE 50MG/5ML VIAL As Ordered ONE (01:06)
[2023-08-15] MEDS ORDERED: SUGAMMADEX SODIUM 500 MG/5 ML VIAL (BRIDION) As Ordered ONE (01:07)
[2023-08-15] MEDS ORDERED: ACETAMINOPHEN 1000MG 100ML IV BAG As Ordered ONE (01:42)
[2023-08-15] MEDS ORDERED: fentaNYL 100 MCG/2 ML INJECTION IV PRN (02:35)
[2023-08-15] MEDS ORDERED: NS 1,000 ML IV SCH (02:35)
[2023-08-15 05:02] LABS: HEMATOCRIT 20.5 % (42.0-52.0)
[2023-08-15 05:03] LABS: HEMOGLOBIN 6.5 g/dl (13.5-17.5)
[2023-08-15] MEDS: HYDROMORPHONE HCL 0.5 MG/ 0.5 ML SYRINGE IV PRN (05:52)
[2023-08-15] MEDS: HumuLIN R (REGULAR) INSULIN (NovoLIN R) **100U/ML** PER UNIT IV STA (05:59)
[2023-08-15] MEDS: DEXTROSE 50% 50ML SYRINGE IV STA (05:59)
[2023-08-15] MEDS: CALCIUM GLUCONATE 1,000 MG in D5W MINI-BAG PLUS 100 ML IV ONE (06:01)
[2023-08-15] MEDS: SOD POLYSTYRENE SULFONATE SUSP 15GM 60ML UD PO ONE (06:01)
[2023-08-15] MEDS ORDERED: INFLUENZA QUADRIVALENT PF VACCINE 0.5ML SYRINGE IM.IMMUN ONE (09:00)
[2023-08-15] MEDS ORDERED: LIDOCAINE 2% JELLY 6ML SYRINGE TOP ONE (09:00)
[2023-08-15] MEDS: SODIUM BICARBONATE 150 MEQ in D5W 1,000 ML IV SCH (09:17)
[2023-08-15] MEDS ORDERED: PATIROMER SORBITEX CALCIUM 8.4 GM POWDER PACKET (VELTASSA) PO ONE (10:00)
== END 2023-08-15 10:34 | disposition short-term general hospital (02) | DRG 469 ==
LOC: M ED 14:09 → M SDC 08-15 03:27 → M ICU 08-15 04:00
PROVIDERS: ADMIT Urology Pediatric Urology; ATTEND Urology Pediatric Urology
PROC: 30233N1 Transfusion of Nonautologous Red Blood Cells into Peripheral Vein, Percutaneous Approach (ICD-10-PCS; principal; 2023-08-14)
PROC: 0TJB8ZZ Inspection of Bladder, Via Natural or Artificial Opening Endoscopic (ICD-10-PCS; 2023-08-15)
DX: N17.9 Acute kidney failure, unspecified (principal); D64.9 Anemia, unspecified; Z88.6 Allergy status to analgesic agent; N18.30 Chronic kidney disease, stage 3 unspecified; N13.1 Hydronephrosis with ureteral stricture, not elsewhere classified

== ENCOUNTER 2023-08-20 15:48 | Inpatient (IN) | payer OTHER ==
[~2023-08-20] VITALS: Ht 175.3 cm; Wt 70.4 kg
[2023-08-20 20:21] VITALS: BP 164/90; TEMP 98.9; O2SAT 98
[2023-08-20] MEDS ORDERED: BISA5TAB72 PO (20:30)
[2023-08-20] MEDS ORDERED: MIRA3350 PO (20:30)
[2023-08-20] MEDS ORDERED: HEPA500057 IV (20:30)
[2023-08-20] MEDS ORDERED: PANT-23 PO (20:30)
[2023-08-20] MEDS ORDERED: RETA4000 IV (20:30)
[2023-08-20] MEDS ORDERED: SEVE800T3 PO (20:30)
[2023-08-20] MEDS ORDERED: SENN-85 PO (20:30)
[2023-08-20] MEDS ORDERED: COLA100C5 PO (20:30)
[2023-08-20] MEDS ORDERED: NIFE1TAB52 PO (20:30)
[2023-08-20] MEDS ORDERED: ONDA40IN IV (20:34)
[2023-08-20] MEDS ORDERED: ZOLP5TAB PO (20:34)
[2023-08-20] MEDS ORDERED: HYDR20VI2 IV (20:34)
[2023-08-20] MEDS ORDERED: HOME MED LIST COMPLETE! XX SCH (20:35)
[2023-08-20] MEDS ORDERED: zolPIDEM TARTRATE 5 MG TAB PO PRN (20:35)
[2023-08-20] MEDS ORDERED: hydrALAZINE 20MG/ML 1ML VIAL IV PRN (20:35)
[2023-08-20 21:17] LABS: HEMATOCRIT 24.9 % (42.0-52.0); HEMOGLOBIN 7.7 g/dl (13.5-17.5); MEAN CORPUSCULAR HEMOGLOBIN 28.8 pg (27.0-33.0); MEAN CORPUSCULAR HGB CONC 30.9 g/dl (32.0-36.5); MEAN CORPUSCULAR VOLUME 93.3 fl (80.0-96.0); PLATELET COUNT, AUTOMATED 176 10^3/uL (150-450); RED BLOOD COUNT 2.67 10^6/uL (4.30-6.10); WHITE BLOOD COUNT 6.3 10^3/uL (4.0-10.0)
[2023-08-20 21:29] LABS: ERYTHROCYTE SEDIMENTATION RATE 21 mm/hr (0-15)
[2023-08-20 21:32] LABS: INR 0.98; PROTHROMBIN TIME 12.7 SECONDS (12.5-14.5)
[2023-08-20 21:41] LABS: ALBUMIN 2.8 G/DL (3.2-5.2); BILIRUBIN,TOTAL 0.2 MG/DL (0.3-1.2); CALCIUM LEVEL 8.1 MG/DL (8.5-10.1); CREATININE FOR GFR 6.88 MG/DL (0.70-1.30); GLOMERULAR FILTRATION RATE 9.9 (>60); PHOSPHORUS LEVEL 8.2 MG/DL (2.5-4.9); POTASSIUM SERUM 5.8 MMOL/L (3.5-5.1); TOTAL PROTEIN 5.3 G/DL (5.7-8.2)
[2023-08-20 21:48] LABS: PROCALCITONIN 1.18 ng/ml
[2023-08-20] MEDS: DOCUSATE SODIUM 100MG CAPSULE PO SCH (22:06)
[2023-08-20] MEDS: NIFEdipine 30MG XL TAB PO SCH (22:07)
[2023-08-20] MEDS: HEPARIN SOD (PORCINE) 5000UNITS/ML 1ML VIAL/SYRINGE SQ SCH (22:09)
[2023-08-20] MEDS: NS 1,000 ML IV SCH (22:20)
[2023-08-21] MEDS: SENNA 8.6 MG TAB (SENOKOT) PO PRN (00:26)
[2023-08-21] MEDS: PATIROMER SORBITEX CALCIUM 8.4 GM POWDER PACKET (VELTASSA) PO ONE (02:50)
[2023-08-21 03:11] LABS: CREATININE,RANDOM URINE 25.9 MG/DL
[2023-08-21 03:29] LABS: TOTAL PROTEIN,RANDOM URINE 164.3 MG/DL (0.0-14.0)
[2023-08-21 04:14] VITALS: BP 159/91; TEMP 98.6; O2SAT 98
[2023-08-21 07:31] LABS: BLOOD UREA NITROGEN 59 MG/DL (9-23); CALCIUM LEVEL 8.4 MG/DL (8.5-10.1); CARBON DIOXIDE LEVEL 29 MMOL/L (20-31); CHLORIDE LEVEL 108 MMOL/L (98-107); CREATININE FOR GFR 7.67 MG/DL (0.70-1.30); GLOMERULAR FILTRATION RATE 8.7 (>60); GLUCOSE, FASTING 88 MG/DL (60-100); MAGNESIUM LEVEL 2.2 MG/DL (1.8-2.4); POTASSIUM SERUM 5.8 MMOL/L (3.5-5.1); SODIUM LEVEL 143 MMOL/L (136-145)
[2023-08-21] MEDS: PANTOPRAZOLE 40MG TAB (PROTONIX) PO SCH (08:46)
[2023-08-21] MEDS: (RENVELA) SEVELAMER **CARBONate** 800 MG TAB PO SCH (08:46)
[2023-08-21] MEDS: BISACODYL 5MG TAB PO SCH (08:46)
[2023-08-21] MEDS ORDERED: SODIUM CHLORIDE 0.9% 1000ML IV PRN (10:50)
[2023-08-21] MEDS ORDERED: HEPARIN 1,000UNITS/ML 10ML VIAL (FOR RADIOLOGY & DIALYSIS ONLY) IV PRN (10:50)
[2023-08-21] MEDS ORDERED: HEPARIN 1,000UNITS/ML 10ML VIAL (FOR RADIOLOGY & DIALYSIS ONLY) XX SCH (10:50)
[2023-08-21 11:48] LABS: HEPATITIS B SURFACE ANTIBODY NEGATIVE (POSITIVE)
[2023-08-21 12:21] LABS: HEPATITIS B CORE ANTIBODY IGM NEGATIVE (NEGATIVE)
[2023-08-21] MEDS: ONDANSETRON 4MG 2ML VIAL IV PRN (13:23)
[2023-08-21 16:40] VITALS: BP 165/107; TEMP 99; O2SAT 100
[2023-08-21] MEDS: **hydrALAZINE** 10 MG TAB PO PRN (18:32)
[2023-08-21 20:24] VITALS: BP 168/90; TEMP 99.1; O2SAT 96
[2023-08-21] MEDS: SENNA 8.6 MG TAB (SENOKOT) PO SCH (20:40)
[2023-08-21] MEDS: NIFEdipine 30MG XL TAB PO SCH (20:40)
[2023-08-22] VITALS (8 sets, daily range): BP systolic 150–178; BP diastolic 88–102; TEMP 97.5–99.3; O2SAT 80–98
[2023-08-22] MEDS: **hydrALAZINE HCL** 25 MG TAB PO SCH (00:27)
[2023-08-22] MEDS ORDERED: HEPARIN 1,000UNITS/ML 10ML VIAL (FOR RADIOLOGY & DIALYSIS ONLY) XX SCH (05:30)
[2023-08-22] MEDS ORDERED: SODIUM CHLORIDE 0.9% 1000ML IV PRN (06:00)
[2023-08-22] MEDS ORDERED: HEPARIN 1,000UNITS/ML 10ML VIAL (FOR RADIOLOGY & DIALYSIS ONLY) IV PRN (06:00)
[2023-08-22 06:25] LABS: BASO % 0.5 % (0.0-1.0); EOS # 0.4 10^3/uL (0.0-0.5); EOS % 5.3 % (0.0-3.0); HEMATOCRIT 25.6 % (42.0-52.0); HEMOGLOBIN 8.1 g/dl (13.5-17.5); LYMPH # 1.3 10^3/uL (1.5-5.0); LYMPH % 16.7 % (24.0-44.0); MEAN CORPUSCULAR HEMOGLOBIN 29.1 pg (27.0-33.0); MEAN CORPUSCULAR HGB CONC 31.6 g/dl (32.0-36.5); MEAN CORPUSCULAR VOLUME 92.1 fl (80.0-96.0); MONO # 0.8 10^3/uL (0.0-0.8); MONO % 10.1 % (2.0-8.0); NEUTROPHILS # 5.1 10^3/uL (1.5-8.5); NEUTROPHILS % 66.3 % (36.0-66.0); PLATELET COUNT, AUTOMATED 198 10^3/uL (150-450); RED BLOOD COUNT 2.78 10^6/uL (4.30-6.10); WHITE BLOOD COUNT 7.6 10^3/uL (4.0-10.0)
[2023-08-22 06:56] LABS: ALBUMIN 2.8 G/DL (3.2-5.2); CALCIUM LEVEL 8.5 MG/DL (8.5-10.1); CREATININE FOR GFR 5.58 MG/DL (0.70-1.30); GLOMERULAR FILTRATION RATE 12.6 (>60); PERCENT SATURATION 22.4 % (19.7-50.0); PHOSPHORUS LEVEL 8.1 MG/DL (2.5-4.9); POTASSIUM SERUM 5.2 MMOL/L (3.5-5.1)
[2023-08-22 06:58] LABS: FOLATE 6.45 NG/ML (>5.4)
[2023-08-22 06:59] LABS: FERRITIN 164.5 NG/ML (10.5-307.3)
[2023-08-23 03:18] VITALS: O2SAT 84
[2023-08-23 03:19] VITALS: O2SAT 98
[2023-08-23 06:42] VITALS: BP 152/89; TEMP 98.2; O2SAT 97
[2023-08-23 14:00] VITALS: BP 166/99; TEMP 98; O2SAT 98
[2023-08-23 22:19] VITALS: BP 154/94; TEMP 98.4; O2SAT 98
[2023-08-24] VITALS (9 sets, daily range): BP systolic 132–168; BP diastolic 66–102; TEMP 98.2–99; O2SAT 96–97
[2023-08-24 05:53] LABS: BASO % 0.3 % (0.0-1.0); EOS # 0.4 10^3/uL (0.0-0.5); EOS % 4.1 % (0.0-3.0); HEMATOCRIT 23.1 % (42.0-52.0); HEMOGLOBIN 7.2 g/dl (13.5-17.5); LYMPH # 1.6 10^3/uL (1.5-5.0); LYMPH % 17.2 % (24.0-44.0); MEAN CORPUSCULAR HEMOGLOBIN 29.1 pg (27.0-33.0); MEAN CORPUSCULAR HGB CONC 31.2 g/dl (32.0-36.5); MEAN CORPUSCULAR VOLUME 93.5 fl (80.0-96.0); MONO # 0.7 10^3/uL (0.0-0.8); MONO % 7.5 % (2.0-8.0); NEUTROPHILS # 6.3 10^3/uL (1.5-8.5); NEUTROPHILS % 70.1 % (36.0-66.0); PLATELET COUNT, AUTOMATED 206 10^3/uL (150-450); RED BLOOD COUNT 2.47 10^6/uL (4.30-6.10)
[2023-08-24] MEDS ORDERED: SODIUM CHLORIDE 0.9% 1000ML IV PRN (06:00)
[2023-08-24] MEDS ORDERED: HEPARIN 1,000UNITS/ML 10ML VIAL (FOR RADIOLOGY & DIALYSIS ONLY) IV PRN (06:00)
[2023-08-24] MEDS ORDERED: HEPARIN 1,000UNITS/ML 10ML VIAL (FOR RADIOLOGY & DIALYSIS ONLY) XX SCH (06:00)
[2023-08-24 06:27] LABS: ALBUMIN 2.8 G/DL (3.2-5.2); CALCIUM LEVEL 8.3 MG/DL (8.5-10.1); CREATININE FOR GFR 7.39 MG/DL (0.70-1.30); GLOMERULAR FILTRATION RATE 9.1 (>60); PHOSPHORUS LEVEL 7.6 MG/DL (2.5-4.9); POTASSIUM SERUM 5.2 MMOL/L (3.5-5.1)
[2023-08-24] MEDS: **hydrALAZINE HCL** 25 MG TAB PO SCH (15:58)
[2023-08-24] MEDS: NIFEdipine 30MG XL TAB PO SCH (20:53)
[2023-08-25 06:00] VITALS: BP 155/90; TEMP 99; O2SAT 97
[2023-08-25 09:09] VITALS: BP 160/92
[2023-08-25] MEDS ORDERED: NIFE1TAB52 PO (13:30)
[2023-08-25] MEDS ORDERED: HYDR50TA46 PO (13:30)
[2023-08-25] MEDS ORDERED: SENN1TAB41 PO (13:32)
[2023-08-25] MEDS ORDERED: SEVE800T3 PO (13:32)
[2023-08-25] MEDS ORDERED: **hydrALAZINE** 50 MG TAB PO SCH (16:00)
== END 2023-08-25 15:43 | disposition home or self-care (01) | DRG 470 ==
LOC: UNDOADMIN 20:05 → M MSPAV 20:05
PROVIDERS: ADMIT Internal Medicine; ATTEND Internal Medicine Nephrology
PROC: 30233N1 Transfusion of Nonautologous Red Blood Cells into Peripheral Vein, Percutaneous Approach (ICD-10-PCS; principal; 2023-08-24)
DX: N18.6 End stage renal disease (principal); I21.4 Non-ST elevation (NSTEMI) myocardial infarction; Q60.0 Renal agenesis, unilateral; E87.5 Hyperkalemia; D63.1 Anemia in chronic kidney disease; K59.00 Constipation, unspecified; K57.90 Diverticulosis of intestine, part unspecified, without perforation or abscess without bleeding; I10 Essential (primary) hypertension; Z88.6 Allergy status to analgesic agent; Z79.899 Other long term (current) drug therapy

== ENCOUNTER → 2023-12-11 | Outpatient (REF) | payer OTHER, MEDICAID ==
[~2023-12-11] MED LIST changes: +BISA5TAB72 PO; +COLA100C5 PO; +HEPA500057 IV; +HYDR20VI2 IV; +HYDR50TA46 PO; +MIRA3350 PO; +NIFE1TAB52 PO; +ONDA40IN IV; +PANT-23 PO; +RETA4000 IV; +SENN-85 PO; +SENN1TAB85 PO; +SEVE800T3 PO; +ZOLP5TAB PO
[2023-12-11 18:35] LABS: BASO % 0.5 % (0.0-1.0); EOS # 0.2 10^3/uL (0.0-0.5); EOS % 3.8 % (0.0-3.0); HEMATOCRIT 37.4 % (42.0-52.0); HEMOGLOBIN 11.8 g/dl (13.5-17.5); LYMPH # 1.2 10^3/uL (1.5-5.0); LYMPH % 20.6 % (24.0-44.0); MEAN CORPUSCULAR HEMOGLOBIN 31.6 pg (27.0-33.0); MEAN CORPUSCULAR HGB CONC 31.6 g/dl (32.0-36.5); MONO # 0.4 10^3/uL (0.0-0.8); MONO % 7.9 % (2.0-8.0); NEUTROPHILS # 3.7 10^3/uL (1.5-8.5); PLATELET COUNT, AUTOMATED 196 10^3/uL (150-450); RED BLOOD COUNT 3.74 10^6/uL (4.30-6.10); WHITE BLOOD COUNT 5.6 10^3/uL (4.0-10.0)
[2023-12-11 19:05] LABS: INR 1.02; PROTHROMBIN TIME 13.1 SECONDS (12.5-14.5)
[2023-12-11 20:48] LABS: HEPATITIS B SURFACE ANTIGEN NEGATIVE (NEGATIVE)
[2023-12-11 21:01] LABS: HIV 1&2 SCREEN NEGATIVE (NEGATIVE)
[2023-12-11 21:16] LABS: ALBUMIN 4.2 G/DL (3.2-5.2); ALKALINE PHOSPHATASE 85 U/L (46-116); ALT/SGPT 15 U/L (7.0-40); AST/SGOT < 8 U/L (<34); BILIRUBIN,TOTAL 0.4 MG/DL (0.3-1.2); BLOOD UREA NITROGEN 46 MG/DL (9-23); CALCIUM LEVEL 9.7 MG/DL (8.5-10.1); CARBON DIOXIDE LEVEL 27 MMOL/L (20-31); CHLORIDE LEVEL 102 MMOL/L (98-107); CREATININE FOR GFR 10.29 MG/DL (0.70-1.30); GLOMERULAR FILTRATION RATE 6.2 (>60); GLUCOSE, FASTING 161 MG/DL (60-100); HEPATITIS C VIRUS ABY INDEX 1.07 INDEX (<0.8); POTASSIUM SERUM 5.6 MMOL/L (3.5-5.1); SODIUM LEVEL 140 MMOL/L (136-145); TOTAL PROTEIN 7.3 G/DL (5.7-8.2)
[2023-12-13 23:38] LABS: HEPATITIS A IgG TOTAL NON-REACTIVE (NON-REACTIVE); HEPATITIS B CORE ANTIBODY IGG NON-REACTIVE (NON-REACTIVE); HEPATITIS B SURF AB QUANT < 5 mIU/mL (> OR = 10)
== END ==
LOC: M LAB REF 16:16
PROVIDERS: ATTEND Family Medicine Addiction Medicine
DX: B18.2 Chronic viral hepatitis C (principal)

== ENCOUNTER 2023-12-29 06:49 | Emergency (ER) | payer MEDICAID, OTHER ==
[~2023-12-29] VITALS: Ht 175.3 cm; Wt 77.3 kg
[2023-12-29 08:02] LABS: BASO % 0.5 % (0.0-1.0); EOS # 0.5 10^3/uL (0.0-0.5); EOS % 8.5 % (0.0-3.0); HEMATOCRIT 26.7 % (42.0-52.0); HEMOGLOBIN 8.8 g/dl (13.5-17.5); LYMPH # 1.7 10^3/uL (1.5-5.0); LYMPH % 29.7 % (24.0-44.0); MEAN CORPUSCULAR VOLUME 97.1 fl (80.0-96.0); MONO # 0.5 10^3/uL (0.0-0.8); MONO % 8.1 % (2.0-8.0); NEUTROPHILS # 2.9 10^3/uL (1.5-8.5); NEUTROPHILS % 52.8 % (36.0-66.0); PLATELET COUNT, AUTOMATED 137 10^3/uL (150-450); RED BLOOD COUNT 2.75 10^6/uL (4.30-6.10); WHITE BLOOD COUNT 5.6 10^3/uL (4.0-10.0)
[2023-12-29 08:36] LABS: ALBUMIN 3.6 G/DL (3.2-5.2); ALKALINE PHOSPHATASE 75 U/L (46-116); ALT/SGPT 12 U/L (7.0-40); AST/SGOT < 8 U/L (<34); BILIRUBIN,TOTAL 0.2 MG/DL (0.3-1.2); BLOOD UREA NITROGEN 94 MG/DL (9-23); CALCIUM LEVEL 8.7 MG/DL (8.5-10.1); CARBON DIOXIDE LEVEL 25 MMOL/L (20-31); CHLORIDE LEVEL 105 MMOL/L (98-107); CREATININE FOR GFR 13.86 MG/DL (0.70-1.30); GLOMERULAR FILTRATION RATE 4.4 (>60); GLUCOSE, FASTING 100 MG/DL (60-100); POTASSIUM SERUM 4.9 MMOL/L (3.5-5.1); SODIUM LEVEL 140 MMOL/L (136-145); TOTAL PROTEIN 5.9 G/DL (5.7-8.2)
[2023-12-29 09:09] LABS: Trichomonas vaginalis (AMP) NOT DETECTED (NEGATIVE)
[2023-12-29 09:33] LABS: GC DNA AMPLIFICATION NEGATIVE (NEGATIVE)
[2023-12-29 10:07] VITALS: BP 190/90; TEMP 97.9; O2SAT 99
[2023-12-29] MEDS ORDERED: CIPR-249 PO (11:06)
[2023-12-29] MEDS: CIPROFLOXACIN 500MG TABLET PO ONE (11:11)
== END 2023-12-29 11:23 | disposition home or self-care (01) ==
LOC: M ED 06:49 → EDBD 06:49 → M ED 11:23
DX: N45.1 Epididymitis (principal); N18.9 Chronic kidney disease, unspecified; I10 Essential (primary) hypertension; J45.909 Unspecified asthma, uncomplicated; Z88.6 Allergy status to analgesic agent; Z79.2 Long term (current) use of antibiotics; Z90.5 Acquired absence of kidney; Z87.442 Personal history of urinary calculi

== ENCOUNTER 2023-12-31 03:05 | Inpatient (IN) | payer OTHER ==
[~2023-12-31] VITALS: Ht 175.3 cm; Wt 80.4 kg
[~2023-12-31 03:05] MED LIST changes: +CIPR-249 PO
[2023-12-31] MEDS: LIDOCAINE 1% MDV 20ML VIAL SC ONE (07:35)
[2023-12-31 08:02] LABS: BASO % 0.3 % (0.0-1.0); EOS # 0.5 10^3/uL (0.0-0.5); EOS % 7.6 % (0.0-3.0); HEMATOCRIT 25.4 % (42.0-52.0); HEMOGLOBIN 8.5 g/dl (13.5-17.5); LYMPH # 1.5 10^3/uL (1.5-5.0); LYMPH % 23.6 % (24.0-44.0); MEAN CORPUSCULAR HEMOGLOBIN 33.1 pg (27.0-33.0); MEAN CORPUSCULAR HGB CONC 33.5 g/dl (32.0-36.5); MEAN CORPUSCULAR VOLUME 98.8 fl (80.0-96.0); MONO # 0.4 10^3/uL (0.0-0.8); MONO % 6.5 % (2.0-8.0); NEUTROPHILS # 3.9 10^3/uL (1.5-8.5); NEUTROPHILS % 61.8 % (36.0-66.0); PLATELET COUNT, AUTOMATED 146 10^3/uL (150-450); RED BLOOD COUNT 2.57 10^6/uL (4.30-6.10); WHITE BLOOD COUNT 6.3 10^3/uL (4.0-10.0)
[2023-12-31 08:26] LABS: LIPASE 71 U/L (12-53)
[2023-12-31 08:46] LABS: ALBUMIN 3.5 G/DL (3.2-5.2); ALKALINE PHOSPHATASE 80 U/L (46-116); ALT/SGPT 14 U/L (7.0-40); AST/SGOT < 8 U/L (<34); BILIRUBIN,DIRECT < 0.1 MG/DL (<0.4); BILIRUBIN,TOTAL < 0.2 MG/DL (0.3-1.2); BLOOD UREA NITROGEN 132 MG/DL (9-23); CALCIUM LEVEL 8.2 MG/DL (8.5-10.1); CARBON DIOXIDE LEVEL 21 MMOL/L (20-31); CHLORIDE LEVEL 104 MMOL/L (98-107); CREATININE FOR GFR 16.94 MG/DL (0.70-1.30); GLOMERULAR FILTRATION RATE 3.5 (>60); GLUCOSE, FASTING 95 MG/DL (60-100); POTASSIUM SERUM 6.7 MMOL/L (3.5-5.1); SODIUM LEVEL 138 MMOL/L (136-145); TOTAL PROTEIN 5.7 G/DL (5.7-8.2)
[2023-12-31] MEDS: CALCIUM GLUCONATE 1,000 MG in D5W MINI-BAG PLUS 100 ML IV ONE (09:08)
[2023-12-31] MEDS: DEXTROSE 50% 50ML SYRINGE IV STA (09:08)
[2023-12-31] MEDS: HumuLIN R (REGULAR) INSULIN (NovoLIN R) **100U/ML** PER UNIT IV ONE (09:08)
[2023-12-31] MEDS: ONDANSETRON 4MG 2ML VIAL IV ONE (09:30)
[2023-12-31] MEDS ORDERED: HEPARIN 1,000UNITS/ML 10ML VIAL (FOR RADIOLOGY & DIALYSIS ONLY) IV PRN (10:50)
[2023-12-31] MEDS ORDERED: SODIUM CHLORIDE 0.9% 1000ML IV PRN (10:50)
[2023-12-31] MEDS: cefTRIAXone SOD 2 GM in D5W MINI-BAG PLUS 50 ML IV SCH (10:52)
[2023-12-31] MEDS: DOXYCYCLINE HYCLATE 100MG TABLET PO SCH (10:52)
[2023-12-31] MEDS ORDERED: CIPR500T39 PO (11:05)
[2023-12-31] MEDS ORDERED: NIFE-3 PO (11:05)
[2023-12-31] MEDS ORDERED: HYDR50TA46 PO (11:05)
[2023-12-31] MEDS ORDERED: HOME MED LIST COMPLETE! XX SCH (11:10)
[2023-12-31] MEDS ORDERED: ACETAMINOPHEN TAB 650MG DOSE (2X325MG) PO PRN (11:20)
[2023-12-31] MEDS ORDERED: MOM 30ML SUSPENSION UDC PO PRN (11:20)
[2023-12-31] MEDS ORDERED: MAALOX 30 ML SUSP *UDC PO PRN (11:20)
[2023-12-31] MEDS: HEPARIN SOD (PORCINE) 5000UNITS/ML 1ML VIAL/SYRINGE SC SCH (14:00)
[2023-12-31] MEDS: HEPARIN 1,000UNITS/ML 10ML VIAL (FOR RADIOLOGY & DIALYSIS ONLY) XX SCH (15:43)
[2023-12-31 16:25] VITALS: TEMP 98.1; O2SAT 99
[2023-12-31] MEDS: **hydrALAZINE** 50 MG TAB PO SCH (16:50)
[2023-12-31 18:05] VITALS: BP 180/100
[2023-12-31 20:00] VITALS: BP 169/97; TEMP 98.4; O2SAT 94
[2023-12-31 20:06] VITALS: BP 172/100
[2023-12-31] MEDS: NIFEdipine 30MG XL TAB PO SCH (20:25)
[2023-12-31 22:53] VITALS: BP 166/82
[2023-12-31] MEDS ORDERED: ACETAMINOPHEN 500 MG TAB PO PRN (23:30)
[2023-12-31] MEDS: PERCOCET 5MG/325MG TAB PO PRN (23:39)
[2024-01-01 04:00] VITALS: BP 129/71; TEMP 98.1; O2SAT 95
[2024-01-01 06:51] LABS: CALCIUM LEVEL 9.1 MG/DL (8.5-10.1); CREATININE FOR GFR 10.29 MG/DL (0.70-1.30); GLOMERULAR FILTRATION RATE 6.2 (>60); MAGNESIUM LEVEL 2.1 MG/DL (1.8-2.4); POTASSIUM SERUM 5.4 MMOL/L (3.5-5.1)
[2024-01-01] MEDS ORDERED: SODIUM CHLORIDE 0.9% 1000ML IV PRN (08:15)
[2024-01-01] MEDS ORDERED: HEPARIN 1,000UNITS/ML 10ML VIAL (FOR RADIOLOGY & DIALYSIS ONLY) IV PRN (08:15)
[2024-01-01 11:41] VITALS: BP 152/79; TEMP 99; O2SAT 100
[2024-01-01] MEDS: DARBEPOETIN 100MCG/0.5ML *DIALYSIS* SYRINGE IV SCH (13:09)
[2024-01-01] MEDS: HEPARIN 1,000UNITS/ML 10ML VIAL (FOR RADIOLOGY & DIALYSIS ONLY) XX SCH (15:06)
[2024-01-01 16:16] VITALS: BP 148/79; TEMP 98.2; O2SAT 99
[2024-01-01 16:18] VITALS: BP 148/79
== END 2024-01-01 17:46 | disposition left against medical advice (07) | DRG 425 ==
LOC: M ED 03:05 → M ED INP 10:04 → M MSPAV 16:26
PROVIDERS: ADMIT Student in an Organized Health Care Education/Training Program; ATTEND Student in an Organized Health Care Education/Training Program
PROC: 5A1D70Z Performance of Urinary Filtration, Intermittent, Less than 6 Hours Per Day (ICD-10-PCS; principal; 2023-12-31)
DX: E87.5 Hyperkalemia (principal); N25.81 Secondary hyperparathyroidism of renal origin; N18.6 End stage renal disease; I12.0 Hypertensive chronic kidney disease with stage 5 chronic kidney disease or end stage renal disease; N45.1 Epididymitis; D63.1 Anemia in chronic kidney disease; Z79.899 Other long term (current) drug therapy; Z88.6 Allergy status to analgesic agent; Z99.2 Dependence on renal dialysis; Z90.5 Acquired absence of kidney

== ENCOUNTER 2024-06-04 07:04 | Inpatient (IN) | payer MEDICAID, OTHER ==
[2024-06-04] VITALS (24 sets, daily range): BP systolic 159–220; BP diastolic 73–118; TEMP 97.4–97.6; O2SAT 95–99
[~2024-06-04] VITALS: Ht 157.5 cm; Wt 88.5 kg
[~2024-06-04 07:04] MED LIST changes: +CIPR500T39 PO; +NIFE-3 PO
[2024-06-04 08:01] LABS: BASO % 0.3 % (0.0-1.0); EOS # 0.3 10^3/uL (0.0-0.5); EOS % 4.5 % (0.0-3.0); HEMOGLOBIN 7.4 g/dl (13.5-17.5); LYMPH # 1.2 10^3/uL (1.5-5.0); LYMPH % 19.8 % (24.0-44.0); MEAN CORPUSCULAR HEMOGLOBIN 30.8 pg (27.0-33.0); MEAN CORPUSCULAR HGB CONC 30.8 g/dl (32.0-36.5); MONO # 0.4 10^3/uL (0.0-0.8); NEUTROPHILS # 4.3 10^3/uL (1.5-8.5); NEUTROPHILS % 68.1 % (36.0-66.0); PLATELET COUNT, AUTOMATED 131 10^3/uL (150-450); WHITE BLOOD COUNT 6.3 10^3/uL (4.0-10.0)
[2024-06-04] MEDS: hydrALAZINE 20MG/ML 1ML VIAL IV ONE (08:20)
[2024-06-04 08:47] LABS: CALCIUM LEVEL 9.1 MG/DL (8.5-10.1); CREATININE FOR GFR 16.67 MG/DL (0.70-1.30); GLOMERULAR FILTRATION RATE 3.6 (>60)
[2024-06-04] MEDS: DEXTROSE 50% 50ML SYRINGE IV STA (08:59)
[2024-06-04] MEDS: CALCIUM CHLORIDE 10% 1 GM in D5W 100 ML IV ONE (09:00)
[2024-06-04] MEDS: HumuLIN R (REGULAR) INSULIN (NovoLIN R) **100U/ML** PER UNIT IV STA (09:00)
[2024-06-04] MEDS ORDERED: hydrALAZINE 20MG/ML 1ML VIAL IV ONE (09:10)
[2024-06-04] MEDS: **hydrALAZINE** 50 MG TAB PO ONE (09:49)
[2024-06-04] MEDS ORDERED: NIFE1TAB50 PO (10:24)
[2024-06-04] MEDS ORDERED: FURO40TA2 PO (10:24)
[2024-06-04] MEDS ORDERED: HOME MED LIST COMPLETE! XX SCH (10:25)
[2024-06-04 11:21] LABS: INR 0.99; PROTHROMBIN TIME 13.4 SECONDS (12.5-14.5)
[2024-06-04] MEDS ORDERED: DEXTROSE 50% 50ML SYRINGE IV PRN (11:35)
[2024-06-04] MEDS ORDERED: GLUCOSE 4 GM CHEW PO PRN (11:35)
[2024-06-04] MEDS ORDERED: GLUCAGON INJ 1MG VIAL SC PRN (11:35)
[2024-06-04 11:56] LABS: ALBUMIN 3.8 G/DL (3.2-5.2); ALKALINE PHOSPHATASE 88 U/L (40-129); ALT/SGPT 17 U/L (7.0-40); AST/SGOT < 8 U/L (<34); BILIRUBIN,DIRECT < 0.1 MG/DL (<0.4); BILIRUBIN,TOTAL 0.2 MG/DL (0.3-1.2); TOTAL PROTEIN 7.2 G/DL (5.7-8.2)
[2024-06-04] MEDS ORDERED: SODIUM CHLORIDE 0.9% 1000 ML IV PRN (12:00)
[2024-06-04] MEDS ORDERED: HEPARIN 1,000UNITS/ML 10ML VIAL (FOR RADIOLOGY & DIALYSIS ONLY) IV PRN (12:00)
[2024-06-04] MEDS ORDERED: LIDOCAINE 1% SDV 5ML VIAL SC PRN (12:00)
[2024-06-04 12:08] LABS: PROCALCITONIN 0.97 ng/ml
[2024-06-04] MEDS: FUROSEMIDE 40 MG TAB PO SCH (12:22)
[2024-06-04] MEDS: NICOTINE 21MG/24HR 1 EA TRANSDERMAL TD SCH (12:28)
[2024-06-04] MEDS ORDERED: LEVALBUTEROL 1.25MG 0.5ML CONCENTRATE NEB NEB PRN (12:40)
[2024-06-04 13:48] LABS: IRON (FE) 80 UG/DL (65-175); PERCENT SATURATION 31.4 % (19.7-50.0); TOTAL IRON BINDING CAPACITY 255 UG/DL (250-425)
[2024-06-04 13:50] LABS: FERRITIN 820.7 NG/ML (10.5-307.3); FOLATE 12.2 NG/ML (>5.4)
[2024-06-04 13:51] LABS: VITAMIN B12 LEVEL 354 PG/ML (211-911)
[2024-06-04 13:55] LABS: HEPATITIS B SURFACE ANTIBODY NEGATIVE (POSITIVE)
[2024-06-04 14:07] LABS: HEPATITIS B SURFACE ANTIGEN NEGATIVE (NEGATIVE)
[2024-06-04] MEDS: ACETAMINOPHEN 325 MG TAB PO PRN (15:48)
[2024-06-04] MEDS ORDERED: **hydrALAZINE** 50 MG TAB PO SCH ×2 (16:00)
[2024-06-04] MEDS: HEPARIN 1,000UNITS/ML 10ML VIAL (FOR RADIOLOGY & DIALYSIS ONLY) XX SCH (16:04)
[2024-06-04] MEDS ORDERED: FUROSEMIDE 40 MG TAB PO SCH (17:00)
[2024-06-04] MEDS: hydrALAZINE 20MG/ML 1ML VIAL IV PRN (18:08)
[2024-06-04] MEDS ORDERED: hydrALAZINE 20MG/ML 1ML VIAL IV PRN (18:10)
[2024-06-04] MEDS: HEPARIN SOD (PORCINE) 5000UNITS/ML 1ML VIAL/SYRINGE SC SCH (18:18)
[2024-06-04 18:23] LABS: ABG O2 SATURATION 97.7 % (95.0-99.0); ABG PARTIAL PRESSURE CO2 38.4 mmHg (35.0-45.0); ABG PARTIAL PRESSURE O2 100.9 mmHg (75.0-100.0); ABG STANDARD HCO3 26.2 MMOL/L. (22.0-26.0); ABG TOTAL CO2 27.2 MMOL/L (22.0-29.0); ABG pH (ARTERIAL) 7.449 UNITS (7.350-7.450)
[2024-06-04] MEDS ORDERED: hydrALAZINE 20MG/ML 1ML VIAL IV SCH ×2 (18:45→21:00)
[2024-06-04] MEDS: FUROSEMIDE 40MG/4ML VIAL IV SCH (18:51)
[2024-06-04 18:58] LABS: CALCIUM LEVEL 9.3 MG/DL (8.5-10.1); CREATININE FOR GFR 6.18 MG/DL (0.70-1.30); GLOMERULAR FILTRATION RATE 11.2 (>60); POTASSIUM SERUM 3.6 MMOL/L (3.5-5.1)
[2024-06-04] MEDS: niCARdipine IV 40 MG in IV 1 EA IV SCH (19:20)
[2024-06-04] MEDS ORDERED: NIFEdipine 30MG XL TAB PO SCH (21:00)
[2024-06-04] MEDS: ONDANSETRON 4MG 2ML VIAL IV PRN (23:32)
[2024-06-05] VITALS (37 sets, daily range): BP systolic 135–196; BP diastolic 60–107; TEMP 97.7–98.9; O2SAT 88–99
[2024-06-05 05:28] LABS: HEMATOCRIT 24.3 % (42.0-52.0); HEMOGLOBIN 7.9 g/dl (13.5-17.5); MEAN CORPUSCULAR HEMOGLOBIN 30.4 pg (27.0-33.0); MEAN CORPUSCULAR HGB CONC 32.5 g/dl (32.0-36.5); MEAN CORPUSCULAR VOLUME 93.5 fl (80.0-96.0); PLATELET COUNT, AUTOMATED 159 10^3/uL (150-450); WHITE BLOOD COUNT 5.5 10^3/uL (4.0-10.0)
[2024-06-05 06:29] LABS: ALBUMIN 3.6 G/DL (3.2-5.2); BILIRUBIN,TOTAL 0.4 MG/DL (0.3-1.2); CALCIUM LEVEL 9.3 MG/DL (8.5-10.1); CREATININE FOR GFR 8.65 MG/DL (0.70-1.30); GLOMERULAR FILTRATION RATE 7.6 (>60); POTASSIUM SERUM 5.1 MMOL/L (3.5-5.1); TOTAL PROTEIN 6.7 G/DL (5.7-8.2)
[2024-06-05] MEDS: **hydrALAZINE** 50 MG TAB PO SCH (09:55)
[2024-06-05] MEDS: CARVedilol 6.25 MG TAB PO SCH (10:18)
[2024-06-05] MEDS: PATIROMER SORBITEX CALCIUM 8.4 GM POWDER PACKET (VELTASSA) PO SCH (11:56)
[2024-06-05] MEDS: (RENVELA) SEVELAMER **CARBONate** 800 MG TAB PO SCH (11:57)
[2024-06-05] MEDS ORDERED: MOM 30ML SUSPENSION UDC PO PRN (15:20)
[2024-06-05] MEDS: FUROSEMIDE 40 MG TAB PO SCH (17:51)
[2024-06-05] MEDS ORDERED: CARV6.25 PO (17:52)
[2024-06-05] MEDS ORDERED: HYDR50TA46 PO (17:52)
[2024-06-05] MEDS: SENNA 8.6 MG TAB (SENOKOT) PO SCH (20:08)
[2024-06-05] MEDS: NIFEdipine 30MG XL TAB PO SCH (20:09)
[2024-06-05] MEDS: DOCUSATE SODIUM 100MG CAPSULE PO SCH (20:09)
[2024-06-06 05:48] LABS: HEMATOCRIT 25.3 % (42.0-52.0); HEMOGLOBIN 8.2 g/dl (13.5-17.5); MEAN CORPUSCULAR HEMOGLOBIN 31.3 pg (27.0-33.0); MEAN CORPUSCULAR HGB CONC 32.4 g/dl (32.0-36.5); MEAN CORPUSCULAR VOLUME 96.6 fl (80.0-96.0); PLATELET COUNT, AUTOMATED 183 10^3/uL (150-450); RED BLOOD COUNT 2.62 10^6/uL (4.30-6.10)
[2024-06-06 06:13] LABS: ALBUMIN 3.4 G/DL (3.2-5.2); ALKALINE PHOSPHATASE 75 U/L (40-129); ALT/SGPT 12 U/L (7.0-40); AST/SGOT < 8 U/L (<34); BILIRUBIN,TOTAL 0.2 MG/DL (0.3-1.2); BLOOD UREA NITROGEN 56 MG/DL (9-23); CARBON DIOXIDE LEVEL 26 MMOL/L (20-31); CHLORIDE LEVEL 101 MMOL/L (98-107); GLOMERULAR FILTRATION RATE 5.2 (>60); GLUCOSE, FASTING 95 MG/DL (60-100); POTASSIUM SERUM 5.9 MMOL/L (3.5-5.1); SODIUM LEVEL 137 MMOL/L (136-145); TOTAL PROTEIN 6.3 G/DL (5.7-8.2)
[2024-06-06 08:00] VITALS: BP 138/60; TEMP 98.1
[2024-06-06] MEDS ORDERED: HEPARIN 1,000UNITS/ML 10ML VIAL (FOR RADIOLOGY & DIALYSIS ONLY) XX SCH (08:35)
[2024-06-06] MEDS ORDERED: LIDOCAINE 1% SDV 5ML VIAL SC PRN (08:35)
[2024-06-06] MEDS ORDERED: SODIUM CHLORIDE 0.9% 1000 ML IV PRN (08:35)
[2024-06-06] MEDS: HEPARIN 1,000UNITS/ML 10ML VIAL (FOR RADIOLOGY & DIALYSIS ONLY) IV PRN (11:28)
[2024-06-06 13:11] VITALS: BP 137/71; TEMP 97.9
[2024-06-06 15:21] LABS: BILIRUBIN,TOTAL 0.2 MG/DL (0.3-1.2); CALCIUM LEVEL 10.2 MG/DL (8.5-10.1); CREATININE FOR GFR 5.79 MG/DL (0.70-1.30); GLOMERULAR FILTRATION RATE 12.1 (>60); POTASSIUM SERUM 4.4 MMOL/L (3.5-5.1); TOTAL PROTEIN 7.5 G/DL (5.7-8.2)
[2024-06-06 16:00] VITALS: BP 156/72; TEMP 98.1
[2024-06-07] MEDS ORDERED: LIDOCAINE 1% SDV 5ML VIAL SC PRN (06:00)
[2024-06-07] MEDS ORDERED: SODIUM CHLORIDE 0.9% 250ML IV PRN (06:00)
[2024-06-07] MEDS ORDERED: HEPARIN 1,000UNITS/ML 10ML VIAL (FOR RADIOLOGY & DIALYSIS ONLY) IV PRN (06:00)
[2024-06-07] MEDS ORDERED: HEPARIN 1,000UNITS/ML 10ML VIAL (FOR RADIOLOGY & DIALYSIS ONLY) XX SCH (06:00)
== END 2024-06-06 18:10 | disposition home or self-care (01) | DRG 199 ==
LOC: M ED 07:04 → M ED INP 10:09 → M PCU 14:54 → M ICU 19:18
PROVIDERS: ADMIT Internal Medicine; ATTEND Internal Medicine
PROC: 5A1D70Z Performance of Urinary Filtration, Intermittent, Less than 6 Hours Per Day (ICD-10-PCS; principal; 2024-06-06)
DX: I16.0 Hypertensive urgency (principal); N18.6 End stage renal disease; E87.5 Hyperkalemia; D63.1 Anemia in chronic kidney disease; D50.9 Iron deficiency anemia, unspecified; F17.200 Nicotine dependence, unspecified, uncomplicated; E16.2 Hypoglycemia, unspecified; Z91.158 Patient's noncompliance with renal dialysis for other reason; I12.0 Hypertensive chronic kidney disease with stage 5 chronic kidney disease or end stage renal disease; Z91.148 Patient's other noncompliance with medication regimen for other reason; G93.5 Compression of brain

== ENCOUNTER 2024-07-01 20:12 | Inpatient (IN) | payer OTHER ==
[~2024-07-01] VITALS: Ht 167.6 cm; Wt 79.2 kg
[~2024-07-01 20:12] MED LIST changes: +CARV6.25 PO; +FURO40TA2 PO; +NIFE1TAB50 PO
[2024-07-01 20:50] LABS: BASO % 0.3 % (0.0-1.0); EOS # 0.2 10^3/uL (0.0-0.5); EOS % 3.1 % (0.0-3.0); HEMATOCRIT 28.1 % (42.0-52.0); HEMOGLOBIN 8.9 g/dl (13.5-17.5); LYMPH # 0.7 10^3/uL (1.5-5.0); LYMPH % 10.5 % (24.0-44.0); MEAN CORPUSCULAR HEMOGLOBIN 30.4 pg (27.0-33.0); MEAN CORPUSCULAR HGB CONC 31.7 g/dl (32.0-36.5); MEAN CORPUSCULAR VOLUME 95.9 fl (80.0-96.0); MONO # 0.5 10^3/uL (0.0-0.8); MONO % 6.6 % (2.0-8.0); NEUTROPHILS # 5.4 10^3/uL (1.5-8.5); NEUTROPHILS % 79.1 % (36.0-66.0); PLATELET COUNT, AUTOMATED 164 10^3/uL (150-450); RED BLOOD COUNT 2.93 10^6/uL (4.30-6.10); WHITE BLOOD COUNT 6.8 10^3/uL (4.0-10.0)
[2024-07-01 21:09] LABS: CK-MB VALUE MASS 3.8 NG/ML (<3.6)
[2024-07-01 21:11] LABS: CPK CREATINE PHOSPHOKINASE 209 U/L (46-171); MB/CK RELATIVE INDEX 1.81 (< OR =4)
[2024-07-01 21:13] LABS: THYROID STIMULATING HORMONE 2.422 uIU/ML (0.55-4.78)
[2024-07-01 21:23] LABS: ALBUMIN 3.7 G/DL (3.2-5.2); ALKALINE PHOSPHATASE 98 U/L (40-129); ALT/SGPT 11 U/L (7.0-40); AST/SGOT < 8 U/L (<34); BILIRUBIN,DIRECT < 0.1 MG/DL (<0.4); BILIRUBIN,TOTAL 0.2 MG/DL (0.3-1.2); BLOOD UREA NITROGEN 123 MG/DL (9-23); CALCIUM LEVEL 8.6 MG/DL (8.5-10.1); CARBON DIOXIDE LEVEL 16 MMOL/L (20-31); CHLORIDE LEVEL 108 MMOL/L (98-107); CREATININE FOR GFR 21.77 MG/DL (0.70-1.30); GLOMERULAR FILTRATION RATE 2.6 (>60); GLUCOSE, FASTING 98 MG/DL (60-100); POTASSIUM SERUM 6.1 MMOL/L (3.5-5.1); SODIUM LEVEL 141 MMOL/L (136-145); TOTAL PROTEIN 6.5 G/DL (5.7-8.2)
[2024-07-01] MEDS: NIFEdipine 30MG XL TAB PO STA (22:23)
[2024-07-01] MEDS: PATIROMER SORBITEX CALCIUM 8.4 GM POWDER PACKET (VELTASSA) PO ONE (22:23)
[2024-07-01] MEDS: DEXTROSE 50% 50ML SYRINGE IV ONE (22:24)
[2024-07-01] MEDS: SODIUM BICARBONATE 8.4% INJ 50ML SYRINGE IV ONE (22:24)
[2024-07-01] MEDS: ACETAMINOPHEN *IV* 1,000 MG in IV 1 EA IV ONE (22:24)
[2024-07-01] MEDS: hydrALAZINE 20MG/ML 1ML VIAL IV STA (22:24)
[2024-07-01] MEDS: ONDANSETRON 4MG 2ML VIAL IV ONE (22:24)
[2024-07-01] MEDS: CARVedilol 6.25 MG TAB PO ONE (22:25)
[2024-07-01] MEDS: HumuLIN R (REGULAR) INSULIN (NovoLIN R) **100U/ML** PER UNIT IV ONE (22:25)
[2024-07-01] MEDS: CALCIUM GLUCONATE 1,000MG/10ML VIAL (100MG/ML) IV ONE (22:26)
[2024-07-01 23:14] LABS: CK-MB VALUE MASS 3.7 NG/ML (<3.6)
[2024-07-01 23:39] LABS: CALCIUM LEVEL 8.3 MG/DL (8.5-10.1); CREATININE FOR GFR 21.77 MG/DL (0.70-1.30); GLOMERULAR FILTRATION RATE 2.6 (>60); MB/CK RELATIVE INDEX 1.77 (< OR =4)
[2024-07-02] VITALS (62 sets, daily range): BP systolic 133–181; BP diastolic 60–94; TEMP 98.3–99.1; O2SAT 92–100
[2024-07-02] MEDS: PATIROMER SORBITEX CALCIUM 8.4 GM POWDER PACKET (VELTASSA) PO ONE (00:05)
[2024-07-02] MEDS: hydrALAZINE 20MG/ML 1ML VIAL IV ONE (00:15)
[2024-07-02] MEDS: niCARdipine IV 40 MG in IV 1 EA IV SCH ×2 (01:15→03:01)
[2024-07-02] MEDS ORDERED: CARV6.25 PO (01:24)
[2024-07-02] MEDS ORDERED: HOME MED LIST COMPLETE! XX SCH (01:25)
[2024-07-02 06:00] LABS: HEMATOCRIT 26.4 % (42.0-52.0); HEMOGLOBIN 8.5 g/dl (13.5-17.5); MEAN CORPUSCULAR HEMOGLOBIN 31.1 pg (27.0-33.0); MEAN CORPUSCULAR HGB CONC 32.2 g/dl (32.0-36.5); MEAN CORPUSCULAR VOLUME 96.7 fl (80.0-96.0); PLATELET COUNT, AUTOMATED 153 10^3/uL (150-450); RED BLOOD COUNT 2.73 10^6/uL (4.30-6.10); WHITE BLOOD COUNT 6.2 10^3/uL (4.0-10.0)
[2024-07-02 06:32] LABS: ALBUMIN 3.5 G/DL (3.2-5.2); CALCIUM LEVEL 9.3 MG/DL (8.5-10.1); CREATININE FOR GFR 22.01 MG/DL (0.70-1.30); GLOMERULAR FILTRATION RATE 2.6 (>60); PHOSPHORUS LEVEL 8.2 MG/DL (2.5-4.9); POTASSIUM SERUM 5.9 MMOL/L (3.5-5.1)
[2024-07-02] MEDS ORDERED: HEPARIN 1,000UNITS/ML 10ML VIAL (FOR RADIOLOGY & DIALYSIS ONLY) IV PRN (09:45)
[2024-07-02] MEDS ORDERED: SODIUM CHLORIDE 0.9% 1000 ML IV PRN (09:45)
[2024-07-02] MEDS ORDERED: HEPARIN 1,000UNITS/ML 10ML VIAL (FOR RADIOLOGY & DIALYSIS ONLY) XX SCH (09:45)
[2024-07-02] MEDS ORDERED: LIDOCAINE 1% SDV 5ML VIAL SC PRN (09:45)
[2024-07-02] MEDS: (RENVELA) SEVELAMER **CARBONate** 800 MG TAB PO SCH (12:50)
[2024-07-02] MEDS: CARVedilol 6.25 MG TAB PO SCH (14:28)
[2024-07-02] MEDS: ACETAMINOPHEN 325 MG TAB PO PRN (15:44)
[2024-07-02] MEDS: ONDANSETRON 4MG 2ML VIAL IV SCH (16:08)
[2024-07-02 18:34] LABS: ABG BASE EXCESS -1.5 (-2.0-2.0); ABG PARTIAL PRESSURE CO2 37.3 mmHg (35.0-45.0); ABG STANDARD HCO3 23.3 MMOL/L. (22.0-26.0); ABG TOTAL CO2 24.1 MMOL/L (22.0-29.0); ABG pH (ARTERIAL) 7.407 UNITS (7.350-7.450)
[2024-07-02 18:56] LABS: CALCIUM LEVEL 8.9 MG/DL (8.5-10.1); CREATININE FOR GFR 9.15 MG/DL (0.70-1.30); GLOMERULAR FILTRATION RATE 7.1 (>60); MAGNESIUM LEVEL 2.1 MG/DL (1.8-2.4); PHOSPHORUS LEVEL 5.3 MG/DL (2.5-4.9); POTASSIUM SERUM 3.2 MMOL/L (3.5-5.1)
[2024-07-02] MEDS: HEPARIN SOD (PORCINE) 5000UNITS/ML 1ML VIAL/SYRINGE SQ SCH (20:26)
[2024-07-02] MEDS: **hydrALAZINE** 50 MG TAB PO SCH (20:27)
[2024-07-03] VITALS (33 sets, daily range): BP systolic 136–172; BP diastolic 65–92; TEMP 98–99.9; O2SAT 87–100
[2024-07-03 06:11] LABS: ALBUMIN 3.3 G/DL (3.2-5.2); ALKALINE PHOSPHATASE 83 U/L (40-129); ALT/SGPT < 9 U/L (7.0-40); AST/SGOT < 8 U/L (<34); BILIRUBIN,TOTAL 0.4 MG/DL (0.3-1.2); BLOOD UREA NITROGEN 50 MG/DL (9-23); CALCIUM LEVEL 7.8 MG/DL (8.5-10.1); CARBON DIOXIDE LEVEL 24 MMOL/L (20-31); CHLORIDE LEVEL 100 MMOL/L (98-107); GLOMERULAR FILTRATION RATE 5.2 (>60); GLUCOSE, FASTING 91 MG/DL (60-100); MAGNESIUM LEVEL 2.2 MG/DL (1.8-2.4); PHOSPHORUS LEVEL 9.3 MG/DL (2.5-4.9); POTASSIUM SERUM 4.3 MMOL/L (3.5-5.1); SODIUM LEVEL 137 MMOL/L (136-145); TOTAL PROTEIN 5.9 G/DL (5.7-8.2)
[2024-07-03] MEDS: CARBAMIDE PEROXIDE 6.5% OTIC SOLN 15ML AS SCH (09:00)
[2024-07-03] MEDS: FUROSEMIDE 40 MG TAB PO SCH (10:34)
[2024-07-03] MEDS: NIFEdipine 30MG XL TAB PO SCH (10:34)
[2024-07-04] VITALS (9 sets, daily range): BP systolic 143–183; BP diastolic 66–86; TEMP 98–99.2; O2SAT 78–98
[2024-07-04 05:34] LABS: ALBUMIN 3.6 G/DL (3.2-5.2); ALKALINE PHOSPHATASE 86 U/L (40-129); ALT/SGPT < 9 U/L (7.0-40); AST/SGOT < 8 U/L (<34); BILIRUBIN,TOTAL < 0.2 MG/DL (0.3-1.2); BLOOD UREA NITROGEN 72 MG/DL (9-23); CALCIUM LEVEL 8.6 MG/DL (8.5-10.1); CARBON DIOXIDE LEVEL 23 MMOL/L (20-31); CHLORIDE LEVEL 101 MMOL/L (98-107); CREATININE FOR GFR 14.71 MG/DL (0.70-1.30); GLOMERULAR FILTRATION RATE 4.1 (>60); GLUCOSE, FASTING 105 MG/DL (60-100); PHOSPHORUS LEVEL 9.8 MG/DL (2.5-4.9); POTASSIUM SERUM 4.9 MMOL/L (3.5-5.1); SODIUM LEVEL 138 MMOL/L (136-145); TOTAL PROTEIN 6.4 G/DL (5.7-8.2)
[2024-07-04] MEDS ORDERED: SODIUM CHLORIDE 0.9% 1000 ML IV PRN (07:25)
[2024-07-04] MEDS ORDERED: LIDOCAINE 1% SDV 5ML VIAL SC PRN (07:25)
[2024-07-04] MEDS ORDERED: HEPARIN 1,000UNITS/ML 10ML VIAL (FOR RADIOLOGY & DIALYSIS ONLY) XX SCH (07:25)
[2024-07-04] MEDS: HEPARIN 1,000UNITS/ML 10ML VIAL (FOR RADIOLOGY & DIALYSIS ONLY) IV PRN (08:48)
[2024-07-04] MEDS ORDERED: SEVE800T3 PO (11:06)
[2024-07-04] MEDS ORDERED: NIFE1TAB50 PO (11:06)
[2024-07-04] MEDS ORDERED: DEBR6.5S4 OTIC (11:06)
[2024-07-04] MEDS ORDERED: HYDR100T26 PO (11:06)
[2024-07-04] MEDS ORDERED: LASI40TA9 PO (11:06)
[2024-07-04] MEDS: ONDANSETRON 4MG 2ML VIAL IV PRN (12:16)
[2024-07-04] MEDS: CARVedilol 6.25 MG TAB PO ONE (13:34)
[2024-07-04] MEDS: **hydrALAZINE** 50 MG TAB PO ONE (13:35)
[2024-07-04] MEDS: **hydrALAZINE** 50 MG TAB PO SCH (20:50)
[2024-07-04] MEDS: CARVedilol 12.5 MG TAB PO SCH (20:50)
[2024-07-05 00:08] VITALS: BP 151/72; TEMP 98.9; O2SAT 96
[2024-07-05 04:29] VITALS: BP 152/75; TEMP 98.3; O2SAT 97
[2024-07-05 05:41] LABS: ALBUMIN 3.2 G/DL (3.2-5.2); BILIRUBIN,TOTAL 0.2 MG/DL (0.3-1.2); CREATININE FOR GFR 9.81 MG/DL (0.70-1.30); GLOMERULAR FILTRATION RATE 6.5 (>60); PHOSPHORUS LEVEL 8.5 MG/DL (2.5-4.9); POTASSIUM SERUM 4.7 MMOL/L (3.5-5.1); TOTAL PROTEIN 6.2 G/DL (5.7-8.2)
[2024-07-05] MEDS ORDERED: HEPARIN 1,000UNITS/ML 10ML VIAL (FOR RADIOLOGY & DIALYSIS ONLY) IV PRN (06:00)
[2024-07-05] MEDS ORDERED: SODIUM CHLORIDE 0.9% 1000 ML IV PRN (06:00)
[2024-07-05] MEDS ORDERED: LIDOCAINE 1% SDV 5ML VIAL SC PRN (06:00)
[2024-07-05 06:27] VITALS: BP 142/72
[2024-07-05 07:22] VITALS: BP 142/72; TEMP 97.3; O2SAT 93
[2024-07-05] MEDS: HEPARIN 1,000UNITS/ML 10ML VIAL (FOR RADIOLOGY & DIALYSIS ONLY) XX SCH (08:47)
[2024-07-05 12:27] VITALS: BP 169/81; TEMP 97.4; O2SAT 97
[2024-07-05] MEDS ORDERED: **hydrALAZINE** 50 MG TAB PO ONE (12:35)
[2024-07-05 14:00] VITALS: BP 149/72
== END 2024-07-05 14:38 | disposition home health service (06) | DRG 199 ==
LOC: M ED 20:12 → EDBD 20:12 → M ED INP 07-02 02:40 → M ICU 07-02 08:51
PROVIDERS: ADMIT Student in an Organized Health Care Education/Training Program; ATTEND Internal Medicine
DX: I16.9 Hypertensive crisis, unspecified (principal); G93.5 Compression of brain; N18.6 End stage renal disease; E87.20 Acidosis, unspecified; E87.5 Hyperkalemia; D63.1 Anemia in chronic kidney disease; B19.20 Unspecified viral hepatitis C without hepatic coma; F17.200 Nicotine dependence, unspecified, uncomplicated; Z79.899 Other long term (current) drug therapy; Z91.158 Patient's noncompliance with renal dialysis for other reason; Z91.148 Patient's other noncompliance with medication regimen for other reason; I12.0 Hypertensive chronic kidney disease with stage 5 chronic kidney disease or end stage renal disease

== ENCOUNTER 2024-07-12 00:52 | Emergency (ER) | payer OTHER ==
[~2024-07-12] VITALS: Ht 172.7 cm; Wt 83.1 kg
[~2024-07-12 00:52] MED LIST changes: +DEBR6.5S4 OTIC; +HYDR100T26 PO; +LASI40TA9 PO
[2024-07-12 00:54] VITALS: TEMP 98.1
[2024-07-12] MEDS ORDERED: FLON1SPR NARES (03:40)
[2024-07-12] MEDS ORDERED: AMOX500C PO (03:40)
[2024-07-12] MEDS: ACETAMINOPHEN 325 MG TAB PO ONE (03:48)
[2024-07-12] MEDS: AMOXICILLIN 500 MG CAP PO ONE (03:49)
[2024-07-12 03:55] VITALS: BP 182/88; O2SAT 93
== END 2024-07-12 03:56 | disposition home or self-care (01) ==
LOC: M ED 00:52
DX: H65.02 Acute serous otitis media, left ear (principal); E11.9 Type 2 diabetes mellitus without complications; I10 Essential (primary) hypertension; J45.909 Unspecified asthma, uncomplicated; F17.200 Nicotine dependence, unspecified, uncomplicated; Z79.2 Long term (current) use of antibiotics; Z79.899 Other long term (current) drug therapy; Z88.6 Allergy status to analgesic agent

== ENCOUNTER 2025-03-16 19:22 | Emergency (ER) | payer OTHER ==
[~2025-03-16] VITALS: Ht 175.3 cm; Wt 63.0 kg
[~2025-03-16 19:22] MED LIST changes: +AMOX500C PO; +FLON1SPR NARES; +FURO80TA2 PO; +HYDR100T PO; +NIFE90TA46 PO; -ZOLP5TAB PO; +ZOLP5TAB9 PO; +med rec comment
[2025-03-16 21:40] VITALS: BP 168/102; TEMP 98; O2SAT 98
== END 2025-03-16 21:50 | disposition left against medical advice (07) ==
LOC: M ED 19:22
DX: Z53.21 Procedure and treatment not carried out due to patient leaving prior to being seen by health care provider (principal)

== ENCOUNTER 2025-03-26 23:31 | Emergency (ER) | payer OTHER ==
[~2025-03-26] VITALS: Ht 175.3 cm; Wt 75.0 kg
[2025-03-27 00:13] LABS: BASO # 0.0 10^3/uL (0.0-0.2); BASO % 0.5 % (0.0-1.0); EOS # 0.2 10^3/uL (0.0-0.5); EOS % 2.2 % (0.0-3.0); LYMPH # 0.4 10^3/uL (1.5-5.0); LYMPH % 4.7 % (24.0-44.0); MONO # 0.5 10^3/uL (0.0-0.8); MONO % 6.3 % (2.0-8.0); NEUTROPHILS # 7.0 10^3/uL (1.5-8.5); NEUTROPHILS % 84.8 % (36.0-66.0); PLATELET COUNT, AUTOMATED 169 10^3/uL (150-450)
[2025-03-27 00:48] LABS: CALCIUM LEVEL 8.9 MG/DL (8.5-10.1); CARBON DIOXIDE LEVEL 24.0 MMOL/L (20-31); CHLORIDE LEVEL 100.0 MMOL/L (98-107); CREATININE FOR GFR 8.93 MG/DL (0.70-1.30); GLOMERULAR FILTRATION RATE 7.3 (>60); POTASSIUM SERUM 5.3 MMOL/L (3.5-5.1); SODIUM LEVEL 135.0 MMOL/L (136-145)
[2025-03-27 08:00] VITALS: O2SAT 95
[2025-03-27] MEDS: IPRATROPIUM 0.5 MG/ALBUTEROL 2.5 MG INH SOL UD 3 ML NEB SCH (08:02)
[2025-03-27 09:00] VITALS: BP 215/119; O2SAT 95
[2025-03-27] MEDS ORDERED: VENTAER INH (09:06)
[2025-03-27 09:10] VITALS: TEMP 99.4
[2025-03-27] MEDS: PATIROMER SORBITEX CALCIUM 8.4GM POWDER PACKET PO ONE (09:28)
== END 2025-03-27 09:28 | disposition home or self-care (01) ==
LOC: M ED 23:31
DX: B34.8 Other viral infections of unspecified site (principal); J98.01 Acute bronchospasm; N18.6 End stage renal disease; E87.5 Hyperkalemia; F17.200 Nicotine dependence, unspecified, uncomplicated; G40.909 Epilepsy, unspecified, not intractable, without status epilepticus; B19.20 Unspecified viral hepatitis C without hepatic coma; Z88.8 Allergy status to other drugs, medicaments and biological substances; Z79.52 Long term (current) use of systemic steroids; Z79.899 Other long term (current) drug therapy
CPT/HCPCS: 71045; 80048; 85025; 87486; 87581; 87633; 87798; 94640; 96374; 99285; J1100

== ENCOUNTER 2025-03-30 15:59 | Emergency (ER) | payer OTHER, SELFPAY ==
[~2025-03-30] VITALS: Ht 175.3 cm; Wt 71.4 kg
[~2025-03-30 15:59] MED LIST changes: +VENTAER INH
[2025-03-30] MEDS ORDERED: CARV12.5 PO (16:10)
[2025-03-30 17:32] LABS: CALCIUM LEVEL 8.5 MG/DL (8.5-10.1); CARBON DIOXIDE LEVEL 34.0 MMOL/L (20-31); CHLORIDE LEVEL 98.0 MMOL/L (98-107); CREATININE FOR GFR 5.11 MG/DL (0.70-1.30); GLOMERULAR FILTRATION RATE 14.3 (>60); POTASSIUM SERUM 4.5 MMOL/L (3.5-5.1); SODIUM LEVEL 140.0 MMOL/L (136-145)
[2025-03-30 17:44] LABS: PLATELET COUNT, AUTOMATED 162 10^3/uL (150-450)
[2025-03-30 17:56] LABS: CK-MB VALUE MASS 2.7 NG/ML (<3.6)
[2025-03-30 17:58] LABS: CPK CREATINE PHOSPHOKINASE 128.0 U/L (46-171); MB/CK RELATIVE INDEX 2.1 (< OR =4)
[2025-03-30] MEDS: **hydrALAZINE** 50 MG TAB PO ONE (18:11)
[2025-03-30 18:19] LABS: INR 0.95
[2025-03-30 18:55] LABS: CK-MB VALUE MASS 2.6 NG/ML (<3.6)
[2025-03-30] MEDS ORDERED: HOME MED LIST COMPLETE! XX SCH (19:00)
[2025-03-30 19:01] LABS: CPK CREATINE PHOSPHOKINASE 129.0 U/L (46-171); MB/CK RELATIVE INDEX 2.01 (< OR =4)
[2025-03-30 19:37] VITALS: BP 197/117
[2025-03-30] MEDS: hydrALAZINE 20 MG/ML 1 ML VIAL IV ONE (19:37)
[2025-03-30] MEDS ORDERED: VANCOMYCIN HCL 1,000 MG in IV FLUID PLACE HOLDER 1 EA IV ONE (20:55)
[2025-03-30] MEDS: niCARdipine IV 40 MG in IV 1 EA IV SCH (20:57)
[2025-03-30] MEDS: PANTOPRAZOLE 40MG VIAL IV SCH (21:36)
[2025-03-30] MEDS: VANCOMYCIN HCL 1,500 MG, VIAL MATE ADAPTER 1 EACH in NS 500 ML IV ONE (22:13)
[2025-03-30 23:03] LABS: CHOLESTEROL LEVEL 176.0 MG/DL (<200); CHOLESTEROL RISK RATIO 2.92 (<5); LDL CHOLESTEROL 88.4 MG/DL (<100); NON-HDL-C 115.8 MG/DL; TRIGLYCERIDES LEVEL 137.0 MG/DL (<150)
[2025-03-30] MEDS: ATORVASTATIN 20 MG TAB PO SCH (23:40)
[2025-03-31] MEDS: ALBUTEROL SULFATE 2.5 MG/0.5 ML INH CONCENTRATE NEB SOLN NEB PRN (00:14)
[2025-03-31 00:31] LABS: CK-MB VALUE MASS 2.0 NG/ML (<3.6)
[2025-03-31 00:32] LABS: CPK CREATINE PHOSPHOKINASE 127.0 U/L (46-171); MB/CK RELATIVE INDEX 1.57 (< OR =4)
[2025-03-31 02:15] VITALS: BP 152/77; O2SAT 95
[2025-03-31 02:21] VITALS: TEMP 97.9
[2025-03-31] MEDS ORDERED: VANCOMYCIN HCL 1,000 MG, VIAL MATE ADAPTER 1 EACH in NS 250 ML IV SCH (16:00)
== END 2025-03-31 02:31 | disposition short-term general hospital (02) ==
LOC: M ED 15:59
DX: I16.0 Hypertensive urgency (principal); D63.1 Anemia in chronic kidney disease; N18.6 End stage renal disease; R79.89 Other specified abnormal findings of blood chemistry; R93.1 Abnormal findings on diagnostic imaging of heart and coronary circulation; I10 Essential (primary) hypertension; I51.7 Cardiomegaly; F17.200 Nicotine dependence, unspecified, uncomplicated; G40.909 Epilepsy, unspecified, not intractable, without status epilepticus; B19.20 Unspecified viral hepatitis C without hepatic coma; Z88.8 Allergy status to other drugs, medicaments and biological substances; Z79.899 Other long term (current) drug therapy
CPT/HCPCS: 36415; 71046; 80048; 80061; 82550; 82553; 84484; 85027; 85610; 85730; 86850; 86900; 86901; 86920; 87040; 93005; 93041; 94640; 94760; 96365; 96366; 96375; 99285; J0360; J2470; J3373

== ENCOUNTER 2025-04-16 11:01 | Emergency (ER) | payer SELFPAY ==
[~2025-04-16] VITALS: Ht 175.3 cm; Wt 76.9 kg
[~2025-04-16 11:01] MED LIST changes: +CARV12.5 PO
[2025-04-16 11:35] LABS: VENOUS BASE EXCESS 3.3 (-2.0-2.0); VENOUS HCO3 27.4 MMOL/L (23.0-27.0); VENOUS O2 SATURATION 98.2 % (60.0-80.0); VENOUS PARTIAL PRESSURE CO2 40.0 mmHg (38.0-50.0); VENOUS PARTIAL PRESSURE O2 114.9 mmHg (30.0-50.0); VENOUS PH 7.454 UNITS (7.330-7.430); VENOUS STANDARD HCO3 27.4 MMOL/L; VENOUS TOTAL CO2 28.7 MMOL/L (24.0-28.0)
[2025-04-16 11:48] LABS: BASO # 0.0 10^3/uL (0.0-0.2); BASO % 0.6 % (0.0-1.0); EOS # 0.2 10^3/uL (0.0-0.5); EOS % 3.6 % (0.0-3.0); LYMPH # 0.6 10^3/uL (1.5-5.0); LYMPH % 11.1 % (24.0-44.0); MONO # 0.4 10^3/uL (0.0-0.8); MONO % 7.5 % (2.0-8.0); NEUTROPHILS # 4.0 10^3/uL (1.5-8.5); NEUTROPHILS % 76.2 % (36.0-66.0); PLATELET COUNT, AUTOMATED 138 10^3/uL (150-450)
[2025-04-16 12:34] LABS: ALT/SGPT 17.0 U/L (7.0-40); AST/SGOT 22.0 U/L (<34); CALCIUM LEVEL 9.6 MG/DL (8.5-10.1); CARBON DIOXIDE LEVEL 27.0 MMOL/L (20-31); CHLORIDE LEVEL 103.0 MMOL/L (98-107); CREATININE FOR GFR 7.56 MG/DL (0.70-1.30); GLOMERULAR FILTRATION RATE 8.9 (>60); POTASSIUM SERUM 6.1 MMOL/L (3.5-5.1); SODIUM LEVEL 143.0 MMOL/L (136-145)
[2025-04-16] MEDS: hydrALAZINE 20 MG/ML 1 ML VIAL IV STA (12:52)
[2025-04-16] MEDS: **hydrALAZINE** 50 MG TAB PO ONE (12:52)
[2025-04-16] MEDS: FUROSEMIDE 40 MG/4 ML VIAL IV ONE (12:52)
[2025-04-16 12:57] LABS: CK-MB VALUE MASS 4.8 NG/ML (<3.6)
[2025-04-16 13:06] LABS: CPK CREATINE PHOSPHOKINASE 443.0 U/L (46-171); MB/CK RELATIVE INDEX 1.08 (< OR =4)
[2025-04-16] MEDS: CALCIUM GLUCONATE 1,000 MG in DEXTROSE 5% (D5W) MINI-BAG PLU 100 ML IV ONE (13:11)
[2025-04-16] MEDS: HumuLIN R (REGULAR) INSULIN (NovoLIN R) **100 U/ML** PER UNIT IV ONE (13:12)
[2025-04-16] MEDS: DEXTROSE 50% 50 ML SYRINGE IV STA (13:12)
[2025-04-16 13:31] LABS: CK-MB VALUE MASS 4.8 NG/ML (<3.6)
[2025-04-16 13:34] LABS: CPK CREATINE PHOSPHOKINASE 416.0 U/L (46-171); MB/CK RELATIVE INDEX 1.15 (< OR =4)
[2025-04-16] MEDS ORDERED: HOME MED LIST COMPLETE! XX SCH (13:50)
[2025-04-16 14:24] VITALS: BP 224/125
[2025-04-16] MEDS: ASPIRIN 81 MG CHEWABLE TABLET PO ONE (14:24)
[2025-04-16 14:31] LABS: INR 1.05
[2025-04-16] MEDS: CLOPIDOGREL 300 MG TAB PO STA (14:52)
[2025-04-16] MEDS: niCARdipine IV 40 MG in IV 1 EA IV SCH (14:55)
[2025-04-16] MEDS: HEPARIN SOD 5000 UNITS/ML 1 ML VIAL/SYRINGE IV ONE (14:59)
[2025-04-16] MEDS: HEPARIN DRIP 25,000 UNITS in IV 1 EA IV SCH (15:00)
[2025-04-16 16:49] VITALS: BP 150/72; TEMP 97.6; O2SAT 94
== END 2025-04-16 16:57 | disposition short-term general hospital (02) ==
LOC: M ED 11:01
DX: I21.4 Non-ST elevation (NSTEMI) myocardial infarction (principal); I16.1 Hypertensive emergency; E87.5 Hyperkalemia; I45.81 Long QT syndrome; R00.0 Tachycardia, unspecified; I10 Essential (primary) hypertension; N18.6 End stage renal disease; G40.909 Epilepsy, unspecified, not intractable, without status epilepticus; B19.20 Unspecified viral hepatitis C without hepatic coma; F17.200 Nicotine dependence, unspecified, uncomplicated; Z88.8 Allergy status to other drugs, medicaments and biological substances; Z79.899 Other long term (current) drug therapy
CPT/HCPCS: 71045; 80047; 80048; 80076; 82550; 82553; 82803; 83880; 84484; 85025; 85610; 85730; 87486; 87581; 87633; 87798; 93005; 93041; 94760; 96365; 96366; 96367; 96375; 99285; J0360; J0612; J1815; J1938

== ENCOUNTER 2025-06-23 16:45 | Inpatient (IN) | payer MEDICAID, OTHER ==
[2025-06-23 17:11] LABS: VENOUS BASE EXCESS -5.7 (-2.0-2.0); VENOUS HCO3 19.2 MMOL/L (23.0-27.0); VENOUS O2 SATURATION 96.3 % (60.0-80.0); VENOUS PARTIAL PRESSURE CO2 35.9 mmHg (38.0-50.0); VENOUS PARTIAL PRESSURE O2 94.5 mmHg (30.0-50.0); VENOUS PH 7.347 UNITS (7.330-7.430); VENOUS STANDARD HCO3 19.7 MMOL/L; VENOUS TOTAL CO2 20.3 MMOL/L (24.0-28.0)
[2025-06-23] MEDS ORDERED: NALOXONE INJ 0.4 MG/1 ML VIAL As Ordered ONE (17:13)
[2025-06-23 17:14] LABS: BASO # 0.0 10^3/uL (0.0-0.2); BASO % 0.2 % (0.0-1.0); EOS # 0.2 10^3/uL (0.0-0.5); EOS % 1.5 % (0.0-3.0); LYMPH # 1.3 10^3/uL (1.5-5.0); LYMPH % 10.0 % (24.0-44.0); MONO # 0.8 10^3/uL (0.0-0.8); MONO % 6.2 % (2.0-8.0); NEUTROPHILS # 10.9 10^3/uL (1.5-8.5); NEUTROPHILS % 81.7 % (36.0-66.0); PLATELET COUNT, AUTOMATED 188 10^3/uL (150-450)
[2025-06-23] MEDS: NALOXONE INJ 0.4 MG/1 ML VIAL IV STA (17:14)
[2025-06-23 17:36] LABS: ABG BASE EXCESS -6.7 (-2.0-2.0); ABG HCO3 20.6 MMOL/L (22.0-26.0); ABG O2 SATURATION 99.6 % (95.0-99.0); ABG PARTIAL PRESSURE CO2 48.9 mmHg (35.0-45.0); ABG PARTIAL PRESSURE O2 272.2 mmHg (75.0-100.0); ABG STANDARD HCO3 19.0 MMOL/L. (22.0-26.0); ABG TOTAL CO2 22.1 MMOL/L (22.0-29.0)
[2025-06-23 17:41] LABS: CK-MB VALUE MASS 6.2 NG/ML (<3.6)
[2025-06-23 17:41] LABS: ABG pH (ARTERIAL) 7.242 UNITS (7.350-7.450)
[2025-06-23 17:43] LABS: CPK CREATINE PHOSPHOKINASE 258.0 U/L (46-171); MB/CK RELATIVE INDEX 2.4 (< OR =4)
[2025-06-23 17:50] LABS: ALT/SGPT 10.0 U/L (7.0-40); AST/SGOT 11.0 U/L (<34); CALCIUM LEVEL 9.4 MG/DL (8.5-10.1); CARBON DIOXIDE LEVEL 21.0 MMOL/L (20-31); CHLORIDE LEVEL 102.0 MMOL/L (98-107); CREATININE FOR GFR 14.5 MG/DL (0.70-1.30); GLOMERULAR FILTRATION RATE 4.1 (>60); POTASSIUM SERUM 6.5 MMOL/L (3.5-5.1); SODIUM LEVEL 141.0 MMOL/L (136-145)
[2025-06-23] MEDS: niCARdipine IV 40 MG in IV 1 EA IV SCH (17:59)
[2025-06-23] MEDS: HumuLIN R (REGULAR) INSULIN (NovoLIN R) **100 U/ML** PER UNIT IV ONE (18:00)
[2025-06-23] MEDS: SODIUM BICARBONATE 8.4% INJ 50ML SYRINGE IV ONE (18:07)
[2025-06-23] MEDS: DEXTROSE 50% 50 ML SYRINGE IV ONE (18:07)
[2025-06-23] MEDS: CALCIUM CHLORIDE 10% 1 GM/10 ML SYR IV ONE (18:11)
[2025-06-23] MEDS: levETIRAcetam INJection 1,000 MG in IV 1 EA IV ONE (18:22)
[2025-06-23 19:13] LABS: CK-MB VALUE MASS 5.5 NG/ML (<3.6)
[2025-06-23 19:15] LABS: CPK CREATINE PHOSPHOKINASE 242.0 U/L (46-171); MB/CK RELATIVE INDEX 2.27 (< OR =4)
[2025-06-23] MEDS ORDERED: ALBU8.5H INH (19:50)
[2025-06-23] MEDS ORDERED: HOME MED LIST COMPLETE! XX SCH (19:50)
[2025-06-23] MEDS ORDERED: niCARdipine IV 40 MG in IV 1 EA IV SCH (21:10)
[2025-06-23 22:23] VITALS: BP 205/98; TEMP 98.4; O2SAT 99
[2025-06-23] MEDS: **hydrALAZINE** 50 MG TAB PO SCH (22:28)
[2025-06-23 22:45] VITALS: O2SAT 96
[2025-06-23 23:01] VITALS: BP 204/92; O2SAT 98
[2025-06-23 23:31] VITALS: BP 187/88; O2SAT 93
[2025-06-24] VITALS (41 sets, daily range): BP systolic 130–206; BP diastolic 59–93; TEMP 97.7–98.2; O2SAT 85–97
[2025-06-24] MEDS: niCARdipine IV 40 MG in IV 1 EA IV SCH (00:51)
[2025-06-24 03:48] LABS: CK-MB VALUE MASS 5.3 NG/ML (<3.6)
[2025-06-24 03:49] LABS: CPK CREATINE PHOSPHOKINASE 190.0 U/L (46-171); MB/CK RELATIVE INDEX 2.78 (< OR =4)
[2025-06-24] MEDS: ACETAMINOPHEN 325 MG TAB PO ONE (04:35)
[2025-06-24] MEDS: FUROSEMIDE 80 MG TAB PO SCH (09:14)
[2025-06-24] MEDS: NIFEdipine 30 MG XL TAB PO SCH (09:14)
[2025-06-24] MEDS: SEVELAMER *CARBONate* 800 MG TAB PO SCH (09:15)
[2025-06-24] MEDS: PANTOPRAZOLE 40MG VIAL IV SCH (09:16)
[2025-06-24] MEDS ORDERED: HEPARIN 1,000 UNITS/ML 10 ML VIAL (FOR RADIOLOGY & DIALYSIS ONLY) IV PRN (09:25)
[2025-06-24] MEDS ORDERED: LIDOCAINE 1% SDV 5 ML VIAL SC PRN (09:25)
[2025-06-24] MEDS ORDERED: SODIUM CHLORIDE 0.9% 1000 ML IV PRN (09:25)
[2025-06-24 09:34] LABS: RSV AMPLIFICATION NEGATIVE (NEGATIVE)
[2025-06-24] MEDS: HEPARIN 1,000 UNITS/ML 10 ML VIAL (FOR RADIOLOGY & DIALYSIS ONLY) XX SCH (15:35)
[2025-06-24 20:42] LABS: PLATELET COUNT, AUTOMATED 195 10^3/uL (150-450)
[2025-06-24 21:17] LABS: CALCIUM LEVEL 9.6 MG/DL (8.5-10.1); CARBON DIOXIDE LEVEL 28.0 MMOL/L (20-31); CHLORIDE LEVEL 97.0 MMOL/L (98-107); CREATININE FOR GFR 7.26 MG/DL (0.70-1.30); GLOMERULAR FILTRATION RATE 9.4 (>60); MAGNESIUM LEVEL 2.2 MG/DL (1.8-2.4); PHOSPHORUS LEVEL 5.1 MG/DL (2.5-4.9); POTASSIUM SERUM 4.9 MMOL/L (3.5-5.1); SODIUM LEVEL 137.0 MMOL/L (136-145)
[2025-06-24] MEDS: ACETAMINOPHEN 325 MG TAB PO PRN (23:39)
[2025-06-25] VITALS (10 sets, daily range): BP systolic 128–163; BP diastolic 62–84; TEMP 97.8–98.6; O2SAT 89–95
[2025-06-25 04:23] LABS: PLATELET COUNT, AUTOMATED 251 10^3/uL (150-450)
[2025-06-25 04:55] LABS: CALCIUM LEVEL 9.5 MG/DL (8.5-10.1); CARBON DIOXIDE LEVEL 26.0 MMOL/L (20-31); CHLORIDE LEVEL 98.0 MMOL/L (98-107); CREATININE FOR GFR 8.77 MG/DL (0.70-1.30); GLOMERULAR FILTRATION RATE 7.5 (>60); MAGNESIUM LEVEL 2.3 MG/DL (1.8-2.4); PHOSPHORUS LEVEL 7.5 MG/DL (2.5-4.9); POTASSIUM SERUM 5.3 MMOL/L (3.5-5.1); SODIUM LEVEL 139.0 MMOL/L (136-145)
[2025-06-25] MEDS ORDERED: MIRALAX *UNIT DOSE* 17 GM PACKET PO SCH (09:00)
[2025-06-25] MEDS: PATIROMER SORBITEX CALCIUM 8.4GM POWDER PACKET PO SCH (11:37)
[2025-06-26] VITALS: BP 160/83; TEMP 98.3; O2SAT 94
[2025-06-26 04:00] VITALS: BP 159/77; TEMP 98; O2SAT 94
[2025-06-26 06:00] VITALS: BP 147/78; O2SAT 92
[2025-06-26] MEDS ORDERED: HEPARIN 1,000 UNITS/ML 10 ML VIAL (FOR RADIOLOGY & DIALYSIS ONLY) IV PRN (06:00)
[2025-06-26] MEDS ORDERED: SODIUM CHLORIDE 0.9% 1000 ML IV PRN (06:00)
[2025-06-26] MEDS ORDERED: LIDOCAINE 1% SDV 5 ML VIAL SC PRN (06:00)
[2025-06-26 06:17] LABS: BASO # 0.0 10^3/uL (0.0-0.2); BASO % 0.4 % (0.0-1.0); EOS # 0.3 10^3/uL (0.0-0.5); EOS % 5.3 % (0.0-3.0); LYMPH # 1.2 10^3/uL (1.5-5.0); LYMPH % 22.6 % (24.0-44.0); MONO # 0.6 10^3/uL (0.0-0.8); MONO % 12.4 % (2.0-8.0); NEUTROPHILS # 3.0 10^3/uL (1.5-8.5); NEUTROPHILS % 58.9 % (36.0-66.0); PLATELET COUNT, AUTOMATED 196 10^3/uL (150-450)
[2025-06-26 06:36] LABS: CALCIUM LEVEL 9.2 MG/DL (8.5-10.1); CARBON DIOXIDE LEVEL 28.0 MMOL/L (20-31); CHLORIDE LEVEL 98.0 MMOL/L (98-107); CREATININE FOR GFR 11.43 MG/DL (0.70-1.30); GLOMERULAR FILTRATION RATE 5.4 (>60); POTASSIUM SERUM 5.6 MMOL/L (3.5-5.1); SODIUM LEVEL 139.0 MMOL/L (136-145)
[2025-06-26 08:00] VITALS: BP 155/87; TEMP 97.3; O2SAT 95
[2025-06-26] MEDS: HEPARIN SOD 5000 UNITS/ML 1 ML VIAL/SYRINGE SQ SCH (08:05)
[2025-06-26] MEDS: HEPARIN 1,000 UNITS/ML 10 ML VIAL (FOR RADIOLOGY & DIALYSIS ONLY) XX SCH (09:29)
[2025-06-26 13:01] VITALS: BP 170/88; TEMP 98.7; O2SAT 99
[2025-06-26 15:37] VITALS: BP 140/68
== END 2025-06-26 18:37 | disposition home or self-care (01) | DRG 199 ==
LOC: M ED 16:45 → EDBD 16:45 → M ED INP 21:07 → M ICU 22:15 → M PCU 06-26 10:41
PROVIDERS: ADMIT Student in an Organized Health Care Education/Training Program; ATTEND Student in an Organized Health Care Education/Training Program
DX: I16.1 Hypertensive emergency (principal); J96.01 Acute respiratory failure with hypoxia; I21.A1 Myocardial infarction type 2; G93.41 Metabolic encephalopathy; I50.31 Acute diastolic (congestive) heart failure; E83.39 Other disorders of phosphorus metabolism; N25.0 Renal osteodystrophy; N18.6 End stage renal disease; E87.5 Hyperkalemia; Z91.158 Patient's noncompliance with renal dialysis for other reason; D63.1 Anemia in chronic kidney disease; B18.2 Chronic viral hepatitis C; G40.909 Epilepsy, unspecified, not intractable, without status epilepticus; Z79.899 Other long term (current) drug therapy; Z88.6 Allergy status to analgesic agent; F17.210 Nicotine dependence, cigarettes, uncomplicated; I13.2 Hypertensive heart and chronic kidney disease with heart failure and with stage 5 chronic kidney disease, or end stage renal disease